=== PATIENT | female | born 1965 | race Caucasian/White ===

== ENCOUNTER → 2017-04-23 | Outpatient (CLI) | payer MEDICARE, OTHER ==
[2017-04-23 11:37] LABS: ALT 24 U/L (9-52); AST 23 U/L (14-36); Alkaline Phosphatase 100 U/L (38-126); Anion Gap 12 mmol/L; Blood Urea Nitrogen 9 mg/dL (7-17); Calcium 9.8 mg/dL (8.4-10.2); Carbon Dioxide 24 mmol/L (22-30); Chloride 101 mmol/L (98-107); Cholesterol 241 mg/dL (<200); Glucose 82 mg/dL (74-99); HDL Cholesterol 77 mg/dL (40-60); Non-African American GFR(MDRD) >60 (>60 ml/min/1.73 sqM); Potassium 3.9 mmol/L (3.5-5.1); Sodium 137 mmol/L (137-145); Total Bilirubin 0.7 mg/dL (0.2-1.3); Triglycerides 144 mg/dL (<150)
--- NOTE | 2017-04-23 11:37 | XR ---
EXAMINATION TYPE: XR chest 2V DATE OF EXAM: 04/23/2017 HISTORY: J44.9 COPD. REFERENCE: Previous study dated 12/26/2014. FINDINGS: There is scarring in the right upper lobe. Lungs are otherwise clear. Pleural spaces are cl ear. The heart is not enlarged. IMPRESSION: NO ACTIVE INTRATHORACIC DISEASE.
[2017-04-23 11:58] LABS: Appearance,Urine Cloudy (Clear); Bilirubin,Urine Negative (Negative); Glucose,Urine (UA) Negative (Negative); Ketones,Urine Negative (Negative); Leukocyte Esterase,Urine Moderate (Negative); Mucus,Urine Rare /hpf; Nitrite,Urine Negative (Negative); Particle Count 10673; Protein,Urine Negative (Negative); Specific Gravity,Urine 1.014 (1.001-1.035); Squamous Epithelial Cell,Urine 10 /hpf (0-4); UA Billing (MACRO vs. MICRO) MICRO; WBC,Urine 4 /hpf (0-5)
[2017-04-23 12:01] LABS: CH 33.3; CHCM 33.4; HCT 39.3 % (34.0-46.0); HDW 2.12; MCH 33.3 pg (25.0-35.0); MCHC 33.2 g/dL (31.0-37.0); MCV 100.2 fL (80.0-100.0); Mean Platelet Volume 7.8; RBC 3.92 m/uL (3.80-5.40); RDW 13.2 % (11.5-15.5); WBC 6.6 k/uL (3.8-10.6)
== END | disposition home or self-care (01) ==
LOC: LABWHC1 10:38
PROVIDERS: ATTEND Internal Medicine
DX: I11.9 Hypertensive heart disease without heart failure (principal); G40.909 Epilepsy, unspecified, not intractable, without status epilepticus; J44.9 Chronic obstructive pulmonary disease, unspecified; R53.1 Weakness; K21.0 Gastro-esophageal reflux disease with esophagitis; R35.0 Frequency of micturition
CPT/HCPCS: 36415; 71020; 80053; 80061; 81001; 84439; 84443; 85027

== ENCOUNTER 2019-01-17 14:02 | Emergency (ER) | payer MEDICARE, OTHER ==
[2019-01-17] MEDS ORDERED: ACETAMINOPHEN IV (For NPO) 1,000 MG in EMPTY BAG 1 BAG IVPB STA (14:09)
[2019-01-17] MEDS ORDERED: LORazepam 2 MG/ML INJ IV STA (14:12)
--- NOTE | 2019-01-17 14:19 | ED ---
General Adult HPI - General Stated complaint: unresponsive Time Seen by Provider: 01/17/19 14:11 Source: EMS Mode of arrival: EMS Limitations: altered mental status, physical limitation - History of Present Illness Initial comments: Patient is a 53-year-old female presenting to the emergency department for decreased responsiveness. Onset is unknown. Patient was found unresponsive by significant other with concern for seizure. Patient was given her dose of Depakote as well as another medication. At this time patient arouses only to sternal rub per EMS. Patient is with decreased responsiveness at this time and nonverbal. Patient is unable to provide any significant history. - Related Data Home Medications Medication Instructions Recorded Confirmed carBAMazepine [carBAMazepine XR] 400 mg PO BID 12/27/14 01/17/19 Ranitidine HCl 150 mg PO BID 12/29/14 01/17/19 ALPRAZolam [Xanax] 2 mg PO DAILY PRN 01/17/19 01/17/19 Albuterol Inhaler [Ventolin Hfa 1 - 2 puff INHALATION RT-Q6H PRN 01/17/19 Inhaler] Albuterol Nebulized [Ventolin 2.5 mg INHALATION RT-QID PRN 01/17/19 01/17/19 Nebulized] Atorvastatin [Lipitor] 20 mg PO DAILY 01/17/19 01/17/19 Cetirizine HCl [Zyrtec] 10 mg PO DAILY 01/17/19 01/17/19 Dexamethasone [Hexadrol] 4 mg PO DAILY 01/17/19 01/17/19 Divalproex Sodium [Depakote] 125 mg PO BID 01/17/19 01/17/19 Divalproex [Depakote] 500 mg PO DAILY 01/17/19 01/17/19 Fluticasone Propionate [Flonase 2 spray EA NOSTRIL BID 01/17/19 01/17/19 Allergy Relief] Gabapentin [Neurontin] 300 mg PO DAILY 01/17/19 01/17/19 Hydrochlorothiazide [Hydrodiuril] 12.5 mg PO DAILY 01/17/19 01/17/19 Loratadine [Claritin] 10 mg PO DAILY 01/17/19 01/17/19 Meloxicam [Mobic] 7.5 mg PO DAILY 01/17/19 01/17/19 Mupirocin 2% Oint [Bactroban 2% 1 applic TOPICAL TID 01/17/19 01/17/19 Oint] Nicotine Polacrilex [Nicorette] 4 mg BUCCAL Q1H MDD 16 01/17/19 01/17/19 Sertraline HCl [Zoloft] 100 mg PO BID 01/17/19 01/17/19 rOPINIRole HCL [Requip] 1 mg PO HS 01/17/19 01/17/19 risperiDONE 3 mg PO DAILY 01/17/19 01/17/19 traZODone HCL [Desyrel] 100 mg PO BID 01/17/19 01/17/19 Allergies Allergy/AdvReac Type Severity Reaction Status Date / Time cyclobenzaprine HCl Allergy Unknown Verified 01/17/19 14:12 [From Flexeril] oxaprozin [From Daypro] Allergy Unknown Verified 01/17/19 14:12 Review of Systems ROS Statement: Those systems with pertinent positive or pertinent negative responses have been documented in the HPI. ROS Other: All systems not noted in ROS Statement are negative. Limitations: ROS unobtainable due to patients medical condition Past Medical History Past Medical History: Asthma, Osteoarthritis (OA), Seizure Disorder Additional Past Medical History / Comment(s): cognitive impairment History of Any Multi-Drug Resistant Organisms: None Reported, Unobtainable Past Surgical History: Orthopedic Surgery Additional Past Surgical History / Comment(s): L KNEE SURG Past Anesthesia/Blood Transfusion Reactions: No Reported Reaction Past Psychological History: Depression Smoking Status: Current every day smoker Past Alcohol Use History: None Reported Past Drug Use History: None Reported - Past Family History Father Family Medical History: Diabetes Mellitus, Seizure Disorder General Exam Limitations: altered mental status, physical limitation General appearance: other (Decreased responsiveness. Does not follow commands. Eyes are deviated to the left with some fasciculation type movement.) Eye exam: Present: PERRL ENT exam: Present: normal oropharynx Neck exam: Present: normal inspection, full ROM. Absent: tenderness, meningismus Respiratory exam: Present: normal lung sounds bilaterally Cardiovascular Exam: Present: tachycardia GI/Abdominal exam: Present: soft. Absent: tenderness Extremities exam: Present: other (Left foot with medial MCP ulcer and erythema) Neurological exam: Present: other (Decreased responsiveness. Does not follow commands. Gag reflex is present. Nonverbal.) Psychiatric exam: Present: other (Nonverbal) Skin exam: Present: other (Left medial MCP foot ulceration and erythema) Course Vital Signs 01/17/19 01/17/19 01/17/19 14:12 15:06 15:21 Temperature 101.3 F H Pulse Rate 124 H 113 H 112 H Respiratory 18 20 18 Rate Blood Pressure 106/62 79/45 83/33 O2 Sat by Pulse 96 Oximetry 01/17/19 01/17/19 01/17/19 15:34 15:51 16:12 Temperature 100.2 F H Pulse Rate 110 H 92 Respiratory 18 18 Rate Blood Pressure 86/41 82/44 O2 Sat by Pulse Oximetry 01/17/19 01/17/19 01/17/19 16:21 16:23 16:45 Temperature 99.8 F H Pulse Rate 107 H 99 Respiratory 18 18 Rate Blood Pressure 97/45 102/57 O2 Sat by Pulse 100 Oximetry 01/17/19 17:20 Temperature Pulse Rate 111 H Respiratory 20 Rate Blood Pressure 85/46 O2 Sat by Pulse 99 Oximetry - Reevaluation(s) Reevaluation #1: 01/17/19 17:35 Source of fever is unknown at this time, 173. There is concern for sepsis. Culture and lactic acid and IV antibiotics and fluid boluses have all been ordered. 01/17/19 17:44 Case was discussed with Dr. Colin. Case was also discussed with Dr. Weller, who would like to come evaluate patient. 01/17/19 18:34 Dr. Colin requested transfer. Case was discussed with Dr. Ireland at [facility] who will accept. EKG Findings - EKG Comments: EKG Findings:: Sinus tachycardia 135. WA 138. QRS 74. QT 296. QTc 444. Normal axis. Right atrial enlargement. Normal QRS. Nonspecific ST-T. Procedures - Central Line Placement Right SC Consent Obtained: emergent situation Patient Placed on Monitor/Pulse Ox: Yes MD Prep: mask, gown, gloves Central Line Prep: Chlorhexidine scrub Local Anesthesia Used: Lidocaine 1% Amount of Anesthesia Used (mls): 2 Central Line Lumen Inserted: triple Central Line Position: good blood return, all ports aspirated, flushed, capped, sutured in place with 3-0 nylon Dressing Applied: Tegaderm Patient Tolerated Procedure: well Complications: none - Lumbar Puncture Consent Obtained: verbal consent, emergent situation Indication for Procedure: fever work up Patient Position: sitting upright/leaning forward Skin Prep: Povidone-Iodine 1% Local Anesthetic Used: Lidocaine 1% Interspace Used: L4-L5 Fluid Initially Obtained: clear Complications: none Patient Tolerated Procedure: well, no complications - Sepsis Sepsis Focused Exam #1 Time Sepsis Criteria Met: 17:35 Sepsis Focused Exam Date: 01/17/19 Sepsis Focused Exam Time: 17:44 Sepsis Focused Exam Complete: Yes Vital Signs & RN Notes Reviewed: Yes Capillary Refill: < 2 Seconds: Fingers, Toes Peripheral Pulses: Normal: Radial (R), Radial (L) Skin Color: Normal for Patient Respiratory Exam: normal lung sounds Cardiovascular Exam: tachycardia Medical Decision Making - Lab Data Result diagrams: 01/17/19 14:16 01/17/19 14:16 Lab Results 01/17/19 01/17/19 01/17/19 Range/Units 14:16 14:16 14:16 WBC 3.5 L (3.8-10.6) k/uL RBC 4.00 (3.80-5.40) m/uL Hgb 13.4 (11.4-16.0) gm/dL Hct 38.7 (34.0-46.0) % MCV 96.7 (80.0-100.0) fL MCH 33.5 (25.0-35.0) pg MCHC 34.7 (31.0-37.0) g/dL RDW 12.7 (11.5-15.5) % Plt Count 123 L (150-450) k/uL Neutrophils % (Manual) 43 % Band Neutrophils % 37 % Lymphocytes % (Manual) 4 % Monocytes % (Manual) 4 % Metamyelocytes % 6 % Myelocytes % 7 % Neutrophils # (Manual) 2.80 (1.3-7.7) k/uL Lymphocytes # (Manual) 0.14 L (1.0-4.8) k/uL Monocytes # (Manual) 0.14 (0-1.0) k/uL Metamyelocytes # (Man) 0.21 H (0) k/uL Myelocytes # (Manual) 0.25 H (0) k/uL Nucleated RBCs 0 (0-0) /100 WBC Manual Slide Review Performed Toxic Granulation Present Toxic Vacuolation Present Large Platelets Present Polychromasia Present PT (9.0-12.0) sec INR (<1.2) APTT (22.0-30.0) sec Sodium 135 L (137-145) mmol/L Potassium 3.1 L (3.5-5.1) mmol/L Chloride 102 (98-107) mmol/L Carbon Dioxide 22 (22-30) mmol/L Anion Gap 11 mmol/L BUN 16 (7-17) mg/dL Creatinine 1.28 H (0.52-1.04) mg/dL Est GFR (CKD-EPI)AfAm 55 (>60 ml/min/1.73 sqM) Est GFR (CKD-EPI)NonAf 48 (>60 ml/min/1.73 sqM) Glucose 111 H (74-99) mg/dL POC Glucose (mg/dL) (75-99) mg/dL POC Glu Beam House Inspector ID Plasma Lactic Acid Huan 1.9 (0.7-2.0) mmol/L Calcium 8.9 (8.4-10.2) mg/dL Total Bilirubin 1.1 (0.2-1.3) mg/dL AST 28 (14-36) U/L ALT 26 (9-52) U/L Alkaline Phosphatase 103 (38-126) U/L Total Protein 5.9 L (6.3-8.2) g/dL Albumin 3.5 (3.5-5.0) g/dL Urine Color Urine Appearance (Clear) Urine pH (5.0-8.0) Ur Specific [place] (1.001-1.035) Urine Protein (Negative) Urine Glucose (UA) (Negative) Urine Ketones (Negative) Urine Blood (Negative) Urine Nitrite (Negative) Urine Bilirubin (Negative) Urine Urobilinogen (<2.0) mg/dL Ur Leukocyte Esterase (Negative) CSF Tube Number CSF Volume CSF Appearance CSF Color CSF Glucose (40-70) mg/dL CSF Total Protein (12-60) mg/dL Urine Opiates Screen (NotDetected) Ur Oxycodone Screen (NotDetected) Urine Methadone Screen (NotDetected) Ur Propoxyphene Screen (NotDetected) Ur Barbiturates Screen (NotDetected) Valproic Acid 66.3 ug/mL Carbamazepine 9.1 ug/mL U Tricyclic Antidepress (NotDetected) Ur Phencyclidine Scrn (NotDetected) Ur Amphetamines Screen (NotDetected) U Methamphetamines Scrn (NotDetected) U Benzodiazepines Scrn (NotDetected) Urine Cocaine Screen (NotDetected) U Marijuana (THC) Screen (NotDetected) Serum Alcohol <10 mg/dL Influenza Type A RNA (Not Detectd) Influenza Type B (PCR) (Not Detectd) 01/17/19 01/17/19 01/17/19 Range/Units 14:16 14:17 14:32 WBC (3.8-10.6) k/uL RBC (3.80-5.40) m/uL Hgb (11.4-16.0) gm/dL Hct (34.0-46.0) % MCV (80.0-100.0) fL MCH (25.0-35.0) pg MCHC (31.0-37.0) g/dL RDW (11.5-15.5) % Plt Count (150-450) k/uL Neutrophils % (Manual) % Band Neutrophils % % Lymphocytes % (Manual) % Monocytes % (Manual) % Metamyelocytes % % Myelocytes % % Neutrophils # (Manual) (1.3-7.7) k/uL Lymphocytes # (Manual) (1.0-4.8) k/uL Monocytes # (Manual) (0-1.0) k/uL Metamyelocytes # (Man) (0) k/uL Myelocytes # (Manual) (0) k/uL Nucleated RBCs (0-0) /100 WBC Manual Slide Review Toxic Granulation Toxic Vacuolation Large Platelets Polychromasia PT 10.2 (9.0-12.0) sec INR 0.9 (<1.2) APTT 28.1 (22.0-30.0) sec Sodium (137-145) mmol/L Potassium (3.5-5.1) mmol/L Chloride (98-107) mmol/L Carbon Dioxide (22-30) mmol/L Anion Gap mmol/L BUN (7-17) mg/dL Creatinine (0.52-1.04) mg/dL Est GFR (CKD-EPI)AfAm (>60 ml/min/1.73 sqM) Est GFR (CKD-EPI)NonAf (>60 ml/min/1.73 sqM) Glucose (74-99) mg/dL POC Glucose (mg/dL) 107 H (75-99) mg/dL POC Glu Beam House Inspector ID Lb Marquez Plasma Lactic Acid Huan (0.7-2.0) mmol/L Calcium (8.4-10.2) mg/dL Total Bilirubin (0.2-1.3) mg/dL AST (14-36) U/L ALT (9-52) U/L Alkaline Phosphatase (38-126) U/L Total Protein (6.3-8.2) g/dL Albumin (3.5-5.0) g/dL Urine Color Yellow Urine Appearance Clear (Clear) Urine pH 5.5 (5.0-8.0) Ur Specific [place] 1.012 (1.001-1.035) Urine Protein Negative (Negative) Urine Glucose (UA) Negative (Negative) Urine Ketones Negative (Negative) Urine Blood Negative (Negative) Urine Nitrite Negative (Negative) Urine Bilirubin 2+ H (Negative) Urine Urobilinogen <2.0 (<2.0) mg/dL Ur Leukocyte Esterase Negative (Negative) CSF Tube Number CSF Volume CSF Appearance CSF Color CSF Glucose (40-70) mg/dL CSF Total Protein (12-60) mg/dL Urine Opiates Screen (NotDetected) Ur Oxycodone Screen (NotDetected) Urine Methadone Screen (NotDetected) Ur Propoxyphene Screen (NotDetected) Ur Barbiturates Screen (NotDetected) Valproic Acid ug/mL Carbamazepine ug/mL U Tricyclic Antidepress (NotDetected) Ur Phencyclidine Scrn (NotDetected) Ur Amphetamines Screen (NotDetected) U Methamphetamines Scrn (NotDetected) U Benzodiazepines Scrn (NotDetected) Urine Cocaine Screen (NotDetected) U Marijuana (THC) Screen (NotDetected) Serum Alcohol mg/dL Influenza Type A RNA (Not Detectd) Influenza Type B (PCR) (Not Detectd) 01/17/19 01/17/19 01/17/19 Range/Units 14:33 15:15 17:18 WBC (3.8-10.6) k/uL RBC (3.80-5.40) m/uL Hgb (11.4-16.0) gm/dL Hct (34.0-46.0) % MCV (80.0-100.0) fL MCH (25.0-35.0) pg MCHC (31.0-37.0) g/dL RDW (11.5-15.5) % Plt Count (150-450) k/uL Neutrophils % (Manual) % Band Neutrophils % % Lymphocytes % (Manual) % Monocytes % (Manual) % Metamyelocytes % % Myelocytes % % Neutrophils # (Manual) (1.3-7.7) k/uL Lymphocytes # (Manual) (1.0-4.8) k/uL Monocytes # (Manual) (0-1.0) k/uL Metamyelocytes # (Man) (0) k/uL Myelocytes # (Manual) (0) k/uL Nucleated RBCs (0-0) /100 WBC Manual Slide Review Toxic Granulation Toxic Vacuolation Large Platelets Polychromasia PT (9.0-12.0) sec INR (<1.2) APTT (22.0-30.0) sec Sodium (137-145) mmol/L Potassium (3.5-5.1) mmol/L Chloride (98-107) mmol/L Carbon Dioxide (22-30) mmol/L Anion Gap mmol/L BUN (7-17) mg/dL Creatinine (0.52-1.04) mg/dL Est GFR (CKD-EPI)AfAm (>60 ml/min/1.73 sqM) Est GFR (CKD-EPI)NonAf (>60 ml/min/1.73 sqM) Glucose (74-99) mg/dL POC Glucose (mg/dL) (75-99) mg/dL POC Glu Beam House Inspector ID Plasma Lactic Acid Huan (0.7-2.0) mmol/L Calcium (8.4-10.2) mg/dL Total Bilirubin (0.2-1.3) mg/dL AST (14-36) U/L ALT (9-52) U/L Alkaline Phosphatase (38-126) U/L Total Protein (6.3-8.2) g/dL Albumin (3.5-5.0) g/dL Urine Color Urine Appearance (Clear) Urine pH (5.0-8.0) Ur Specific [place] (1.001-1.035) Urine Protein (Negative) Urine Glucose (UA) (Negative) Urine Ketones (Negative) Urine Blood (Negative) Urine Nitrite (Negative) Urine Bilirubin (Negative) Urine Urobilinogen (<2.0) mg/dL Ur Leukocyte Esterase (Negative) CSF Tube Number 4 CSF Volume 1.0 CSF Appearance Clear CSF Color Colorless CSF Glucose 65 (40-70) mg/dL CSF Total Protein 52 (12-60) mg/dL Urine Opiates Screen Not Detected (NotDetected) Ur Oxycodone Screen Not Detected (NotDetected) Urine Methadone Screen Not Detected (NotDetected) Ur Propoxyphene Screen Not Detected (NotDetected) Ur Barbiturates Screen Not Detected (NotDetected) Valproic Acid ug/mL Carbamazepine ug/mL U Tricyclic Antidepress Not Detected (NotDetected) Ur Phencyclidine Scrn Not Detected (NotDetected) Ur Amphetamines Screen Not Detected (NotDetected) U Methamphetamines Scrn Not Detected (NotDetected) U Benzodiazepines Scrn Not Detected (NotDetected) Urine Cocaine Screen Not Detected (NotDetected) U Marijuana (THC) Screen Not Detected (NotDetected) Serum Alcohol mg/dL Influenza Type A RNA Not Detected (Not Detectd) Influenza Type B (PCR) Not Detected (Not Detectd) Critical Care Time Critical Care Time: Yes Total Critical Care Time: 40 Disposition Clinical Impression: Septic shock, Seizure Disposition: OTHER INSTITUTION NOT DEFINED Condition: Critical Is patient prescribed a controlled substance at d/c from ED?: No Referrals: Pavel Colin MD [Primary Care Provider] - 1-2 days Time of Disposition: 18:13 - Out of Hospital Transfer - Req. Specs Out of Hospital Transfer - Requested Specifics: Other Emergency Center
[2019-01-17] MEDS: SODIUM CHLORIDE 0.9% 500 ML 500 ML IV SCH (14:23)
[2019-01-17 14:29] LABS: Glucose,Whole Blood 107 mg/dL (75-99)
[2019-01-17 14:48] LABS: HCT 38.7 % (34.0-46.0); HGB 13.4 gm/dL (11.4-16.0); MCH 33.5 pg (25.0-35.0); MCHC 34.7 g/dL (31.0-37.0); MCV 96.7 fL (80.0-100.0); Mean Platelet Volume 7.8; Platelet Count 123 k/uL (150-450); RDW 12.7 % (11.5-15.5); WBC 3.5 k/uL (3.8-10.6)
[2019-01-17 14:52] LABS: Appearance,Urine Clear (Clear); Bilirubin,Urine 2+ (Negative); Blood,Urine Negative (Negative); Color,Urine Yellow; Glucose,Urine (UA) Negative (Negative); Ketones,Urine Negative (Negative); Leukocyte Esterase,Urine Negative (Negative); Nitrite,Urine Negative (Negative); PH, Urine 5.5 (5.0-8.0); Protein,Urine Negative (Negative); Specific Gravity,Urine 1.012 (1.001-1.035); Urobilinogen,Urine <2.0 mg/dL (<2.0)
[2019-01-17 14:58] LABS: INR 0.9 (<1.2); Partial Thromboplastin Time 28.1 sec (22.0-30.0); Prothrombin Time 10.2 sec (9.0-12.0)
[2019-01-17 15:00] LABS: ALT 26 U/L (9-52); AST 28 U/L (14-36); Albumin 3.5 g/dL (3.5-5.0); Alcohol <10 mg/dL; Alkaline Phosphatase 103 U/L (38-126); Anion Gap 11 mmol/L; Blood Urea Nitrogen 16 mg/dL (7-17); Calcium 8.9 mg/dL (8.4-10.2); Carbamazepine (Tegretol) 9.1 ug/mL; Carbon Dioxide 22 mmol/L (22-30); Chloride 102 mmol/L (98-107); Glucose 111 mg/dL (74-99); Potassium 3.1 mmol/L (3.5-5.1); Sodium 135 mmol/L (137-145); Total Bilirubin 1.1 mg/dL (0.2-1.3); Total Protein 5.9 g/dL (6.3-8.2)
--- NOTE | 2019-01-17 15:02 | CT ---
EXAMINATION TYPE: CT brain wo con DATE OF EXAM: 01/17/2019 HISTORY: altered mental status, unresponsive CT DLP: 1097.4 mGycm. Automated Exposure Control for Dose Reduction was Utilized. TECHNIQUE: CT scan of the head is performed without contrast. COMPARISON: CT scan of brain December 26, 2014. FINDINGS: There is no acute intracranial hemorrhage or midline shift identified. There is diffuse v entricular and sulcal prominence consistent with diffuse age-related cerebral atrophy. There is low- attenuation in the periventricular white matter consistent with chronic small vessel ischemic change. Air-fluid level left sphenoid sinus is present. Remainder paranasal sinuses are clear. Globes are in tact bilaterally. Stable patchy opacification posterior inferior left mastoid with sclerosis suggesti ng chronic mastoiditis. IMPRESSION: No acute intracranial hemorrhage or midline shift. There is mild to minimal diffuse age -related cerebral atrophy and chronic small vessel ischemic change redemonstrated. Persistent left sp henoid sinus disease noted.
[2019-01-17 15:03] LABS: Valproic Acid (Depakene) 66.3 ug/mL
--- NOTE | 2019-01-17 15:03 | XR ---
EXAMINATION TYPE: XR foot complete LT DATE OF EXAM: 01/17/2019 CLINICAL HISTORY: Pain. TECHNIQUE: Frontal, lateral, and oblique images of the left foot are obtained. COMPARISON: Left foot x-ray September 17, 2017 FINDINGS: There is no acute fracture/dislocation evident in the left foot. Flexion and joint space n arrowing distal fourth and fifth toes remains present. Mild to moderate narrowing first metatarsophal angeal joint with lateral mild spurring is redemonstrated. Mild to moderate narrowing and spurring ba se of first metatarsal is again seen best on oblique image. Small to tiny superior and inferior calca kareen spurs are redemonstrated. Mild plantar subcutaneous edema is again seen. IMPRESSION: There is no acute fracture or dislocation in the left foot. Other findings as noted abov e without significant interval change.
[2019-01-17 15:04] LABS: Amphetamine Screen,Urine Not Detected (NotDetected); Barbiturate Screen,Urine Not Detected (NotDetected); Benzodiazepines Screen,Urine Not Detected (NotDetected); Cocaine Screen,Urine Not Detected (NotDetected); Methadone Screen, Urine Not Detected (NotDetected); Opiate Screen,Urine Not Detected (NotDetected); Oxycodone Screen, Urine Not Detected (NotDetected); Phencyclidine Screen,Urine Not Detected (NotDetected); Tricyclic Antidepressant,Urine Not Detected (NotDetected); Urn Cannabinoid Scrn Not Detected (NotDetected)
--- NOTE | 2019-01-17 15:04 | XR ---
EXAMINATION TYPE: XR chest 1V portable DATE OF EXAM: 01/17/2019 COMPARISON: Chest x-ray April 23, 2017. HISTORY: Unresponsive and weakness. TECHNIQUE: Single frontal view of the chest is obtained. FINDINGS: There is no new suspicious focal air space opacity, pleural effusion, or pneumothorax seen . Right upper lung linear scarring is redemonstrated. The cardiac silhouette size is upper limits of normal on current study. Overlying EKG leads are seen. The osseous structures are intact. IMPRESSION: No acute pulmonary process. Right upper lung linear scarring redemonstrated.
[2019-01-17] MEDS ORDERED: SODIUM CHLORIDE 0.9% 1,000 ML IV STA (15:11)
[2019-01-17] MEDS ORDERED: SODIUM CHLORIDE 0.9% 700 ML IV STA (15:11)
[2019-01-17 17:31] LABS: Band Neutrophils % 37 %; Lymphocytes # (M) 0.14 k/uL (1.0-4.8); Metamyelocytes # (M) 0.21 k/uL (0); Metamyelocytes % 6 %; Monocytes # (M) 0.14 k/uL (0-1.0); Myelocytes # (M) 0.25 k/uL (0); Myelocytes % 7 %; Neutrophils % (M) 43 %; Nucleated Red Blood Cells 0 /100 WBC (0-0); Polychromasia Present; Total Cells Counted 200; Toxic Vacuolation Present
[2019-01-17 17:32] LABS: Large Platelets Present; Toxic Granulation Present
[2019-01-17] MEDS ORDERED: NOREPINEPHRINE 32 MG in SODIUM CHLORIDE 0.9% 218 ML IV SCH (17:45)
[2019-01-17 17:57] LABS: Glucose,CSF 65 mg/dL (40-70); Total Protein,CSF 52 mg/dL (12-60)
--- NOTE | 2019-01-17 18:01 | XR ---
EXAMINATION TYPE: XR chest 1V portable DATE OF EXAM: 01/17/2019 COMPARISON: Today HISTORY: Line placement TECHNIQUE: Single frontal view of the chest is obtained. FINDINGS: There is a right subclavian catheter with the tip in the superior vena cava. No pneumothor ax. There is some mild linear infiltrate in the right upper lobe. There is no heart failure. Heart si ze is normal. There are chest leads. IMPRESSION: Right upper lobe chronic infiltrate consistent with scarring and atelectasis. This is al so similar to older chest x-ray of 04/23/2017.. No pneumothorax. No heart failure.
[2019-01-17 18:28] LABS: Appearance,CSF Clear; CSF Tube Number 4
[2019-01-17] MEDS ORDERED: VANCOMYCIN 1,500 MG in SODIUM CHLORIDE 0.9% 250 ML IVPB STA (18:36)
[2019-01-17 18:39] LABS: Nucleated Cells, CSF 0 u/L (0-5); Red Blood Cell,CSF 0 u/L (0-10)
[2019-01-17 18:43] VITALS: RESP 18
[2019-01-17 19:06] VITALS: TEMP 99
[2019-01-17 19:20] VITALS: BP 86/55; PULSE 101
[2019-01-18 09:53] LABS: VDRL, Qualitative CSF Nonreactive (Nonreactive)
== END 2019-01-17 19:21 | disposition other institution (70) ==
LOC: EC 14:02
DX: A41.9 Sepsis, unspecified organism (principal); R65.21 Severe sepsis with septic shock; G40.909 Epilepsy, unspecified, not intractable, without status epilepticus; L97.529 Non-pressure chronic ulcer of other part of left foot with unspecified severity; J45.909 Unspecified asthma, uncomplicated; M19.90 Unspecified osteoarthritis, unspecified site; F32.9 Major depressive disorder, single episode, unspecified; F17.200 Nicotine dependence, unspecified, uncomplicated; Z79.52 Long term (current) use of systemic steroids; Z79.1 Long term (current) use of non-steroidal anti-inflammatories (NSAID); Z79.899 Other long term (current) drug therapy; Z88.8 Allergy status to other drugs, medicaments and biological substances
CPT/HCPCS: 36415; 93005; 86592; 80156; 80164; 84157; 80053; 82945; 83605; 85025; 85610; 85730; 89050; 81003; 87040; 80306; 87070; 87086; 87205; 87502; 73630; 71045; 70450; 99291; 36556; 62270; 96365; 96367; 96374; 96361 ×2; G0480; J3370; J2060; J0696; J0131; 80320

== ENCOUNTER 2019-06-02 17:19 | Inpatient (IN) | payer MEDICARE, OTHER ==
[2019-06-02] MEDS ORDERED: SODIUM CHLORIDE 0.9% 500 ML 500 ML IV STA (18:13)
--- NOTE | 2019-06-02 18:16 | ED ---
Seizure HPI <Dale Funes - Last Filed: 06/02/19 19:49> - General Source: patient, EMS Mode of arrival: EMS Limitations: no limitations <Chantale Rivas - Last Filed: 06/02/19 20:14> - General Chief Complaint: Seizure Stated Complaint: Seizure Time Seen by Provider: 06/02/19 18:07 - History of Present Illness Initial Comments: 53-year-old female patient presents to the emergency department today for evaluation after experiencing 2 seizures at home. Patient does have history of seizures and cognitive delay. Patient provides all of history is no family members are present. Patient states that she had 2 seizures today. She is unsure how long it lasted. Patient is unsure when her last seizure was before today. Patient states she currently feels tired but has no other symptoms. States that she does take Depakote for seizures and has been taking as directed. She denies any recent illness, fever, or chills. She denies any current headache, blurred vision, double vision, nausea, chest pain, shortness of breath, abdominal pain, recent constipation or diarrhea. Denies any urinary symptoms. Patient denies any recent rash, shortness breath, chest pain, back pain, numbness, tingling, dizziness, weakness, hematuria, dysuria, urinary urgency, urinary frequency, or any other complaints. (Chantale Rivas) - Related Data Home Medications Medication Instructions Recorded Confirmed carBAMazepine [carBAMazepine XR] 400 mg PO BID 12/27/14 01/17/19 Ranitidine HCl 150 mg PO BID 12/29/14 01/17/19 ALPRAZolam [Xanax] 2 mg PO DAILY PRN 01/17/19 01/17/19 Albuterol Inhaler [Ventolin Hfa 1 - 2 puff INHALATION RT-Q6H PRN 01/17/19 01/17/19 Inhaler] Albuterol Nebulized [Ventolin 2.5 mg INHALATION RT-QID PRN 01/17/19 01/17/19 Nebulized] Atorvastatin [Lipitor] 20 mg PO DAILY 01/17/19 01/17/19 Cetirizine HCl [Zyrtec] 10 mg PO DAILY 01/17/19 01/17/19 Dexamethasone [Hexadrol] 4 mg PO DAILY 01/17/19 01/17/19 Divalproex Sodium [Depakote] 125 mg PO BID 01/17/19 01/17/19 Divalproex [Depakote] 500 mg PO DAILY 01/17/19 01/17/19 Fluticasone Propionate [Flonase 2 spray EA NOSTRIL BID 01/17/19 01/17/19 Allergy Relief] Gabapentin [Neurontin] 300 mg PO DAILY 01/17/19 01/17/19 Hydrochlorothiazide [Hydrodiuril] 12.5 mg PO DAILY 01/17/19 01/17/19 Loratadine [Claritin] 10 mg PO DAILY 01/17/19 01/17/19 Meloxicam [Mobic] 7.5 mg PO DAILY 01/17/19 01/17/19 Mupirocin 2% Oint [Bactroban 2% 1 applic TOPICAL TID 01/17/19 01/17/19 Oint] Nicotine Polacrilex [Nicorette] 4 mg BUCCAL Q1H MDD 16 01/17/19 01/17/19 Sertraline HCl [Zoloft] 100 mg PO BID 01/17/19 01/17/19 rOPINIRole HCL [Requip] 1 mg PO HS 01/17/19 01/17/19 risperiDONE 3 mg PO DAILY 01/17/19 01/17/19 traZODone HCL [Desyrel] 100 mg PO BID 01/17/19 01/17/19 Allergies Allergy/AdvReac Type Severity Reaction Status Date / Time cyclobenzaprine HCl Allergy Unknown Verified 06/02/19 18:18 [From Flexeril] oxaprozin [From Daypro] Allergy Unknown Verified 06/02/19 18:18 Review of Systems ROS Other: All systems not noted in ROS Statement are negative. <Dale Funes - Last Filed: 06/02/19 19:49> ROS Other: All systems not noted in ROS Statement are negative. <Chantale Rivas - Last Filed: 06/02/19 20:14> ROS Statement: Those systems with pertinent positive or pertinent negative responses have been documented in the HPI. Past Medical History Past Medical History: Asthma, Osteoarthritis (OA), Seizure Disorder Additional Past Medical History / Comment(s): cognitive impairment History of Any Multi-Drug Resistant Organisms: None Reported, Unobtainable Past Surgical History: Orthopedic Surgery Additional Past Surgical History / Comment(s): L KNEE SURG Past Anesthesia/Blood Transfusion Reactions: No Reported Reaction Past Psychological History: Depression Smoking Status: Current every day smoker Past Alcohol Use History: None Reported Past Drug Use History: None Reported - Past Family History Father Family Medical History: Diabetes Mellitus, Seizure Disorder <Chantale Rivas - Last Filed: 06/02/19 20:14> General Exam Limitations: no limitations General appearance: alert, in no apparent distress, other (Physical well- developed, well-nourished adult female patient in no acute distress. Vital signs upon presentation are temperature 98.7 degrees; pulse 91 respiration 16, blood pressure 152/90, pulse ox 97% on room air.) Eye exam: Present: normal appearance, PERRL, EOMI. Absent: scleral icterus, conjunctival injection, periorbital swelling ENT exam: Present: normal exam, normal oropharynx, mucous membranes moist Respiratory exam: Present: normal lung sounds bilaterally. Absent: respiratory distress, wheezes, rales, rhonchi, stridor Cardiovascular Exam: Present: regular rate, normal rhythm, normal heart sounds. Absent: systolic murmur, diastolic murmur, rubs, gallop, clicks GI/Abdominal exam: Present: soft, normal bowel sounds. Absent: distended, tenderness, guarding, rebound, rigid Neurological exam: Present: alert, oriented X3, CN II-XII intact Psychiatric exam: Present: normal affect, normal mood Skin exam: Present: warm, dry, intact, normal color. Absent: rash <Chantale Rivas M - Last Filed: 06/02/19 20:14> Course Vital Signs 06/02/19 17:27 Temperature 98.7 F Pulse Rate 91 Respiratory 16 Rate Blood Pressure 152/90 O2 Sat by Pulse 97 Oximetry Medical Decision Making - Lab Data Result diagrams: 06/02/19 17:42 06/02/19 17:42 <Dale Funes - Last Filed: 06/02/19 19:49> - Lab Data Result diagrams: 06/02/19 17:42 06/02/19 17:42 - EKG Data -: EKG Interpreted by Sd <Chantale Rivas - Last Filed: 06/02/19 20:14> - Medical Decision Making Case was discussed with practitioner Chantale. Chart reviewed. Secondary to 2 seizures of possibly up to 15 minute duration patient will be held for observation and neurology evaluation. Case was discussed in detail with Dr. Guallpa, covering for Dr. Colin, who agrees and will admit. (Dale Funes) 53-year-old female patient presented to the emergency department today for evaluation after having 2 seizures today lasting possibly up to 15-20 minutes. Family members provided this information to emergency medical services but did not present during patient's evaluation. Patient is resting comfortably in bed. Physical examination is unremarkable. She is neurologically intact with no focal deficits. Labs reviewed and are unremarkable. Depakote is therapeutic. She'll be admitted for observation and evaluation by neurology. (Chantale Rivas) - Lab Data Lab Results 06/02/19 06/02/19 06/02/19 Range/Units 17:42 17:42 19:10 WBC 6.1 (3.8-10.6) k/uL RBC 3.92 (3.80-5.40) m/uL Hgb 12.4 (11.4-16.0) gm/dL Hct 36.5 (34.0-46.0) % MCV 93.2 (80.0-100.0) fL MCH 31.8 (25.0-35.0) pg MCHC 34.1 (31.0-37.0) g/dL RDW 13.8 (11.5-15.5) % Plt Count 178 (150-450) k/uL Neutrophils % 68 % Lymphocytes % 21 % Monocytes % 7 % Eosinophils % 3 % Basophils % 0 % Neutrophils # 4.1 (1.3-7.7) k/uL Lymphocytes # 1.3 (1.0-4.8) k/uL Monocytes # 0.4 (0-1.0) k/uL Eosinophils # 0.2 (0-0.7) k/uL Basophils # 0.0 (0-0.2) k/uL Sodium 135 L (137-145) mmol/L Potassium 3.3 L (3.5-5.1) mmol/L Chloride 101 (98-107) mmol/L Carbon Dioxide 22 (22-30) mmol/L Anion Gap 12 mmol/L BUN 13 (7-17) mg/dL Creatinine 0.88 (0.52-1.04) mg/dL Est GFR (CKD-EPI)AfAm 87 (>60 ml/min/1.73 sqM) Est GFR (CKD-EPI)NonAf 76 (>60 ml/min/1.73 sqM) Glucose 107 H (74-99) mg/dL Calcium 9.2 (8.4-10.2) mg/dL Total Bilirubin 0.3 (0.2-1.3) mg/dL AST 15 (14-36) U/L ALT 10 (9-52) U/L Alkaline Phosphatase 96 (38-126) U/L Total Protein 6.7 (6.3-8.2) g/dL Albumin 4.2 (3.5-5.0) g/dL Urine Color Light Yellow Urine Appearance Clear (Clear) Urine pH 5.5 (5.0-8.0) Ur Specific Mcclave 1.008 (1.001-1.035) Urine Protein Negative (Negative) Urine Glucose (UA) Negative (Negative) Urine Ketones Negative (Negative) Urine Blood Negative (Negative) Urine Nitrite Negative (Negative) Urine Bilirubin Negative (Negative) Urine Urobilinogen <2.0 (<2.0) mg/dL Ur Leukocyte Esterase Negative (Negative) Valproic Acid 99.0 ug/mL - EKG Data EKG Comments: EKG obtained at 1820 shows normal sinus rhythm with a ventricular rate of 73, ID interval 184, QRS duration 76, QT 402, QTc 442. No evidence of ST elevation or depression (Chantale Rivas) Disposition <Dale Funes - Last Filed: 06/02/19 19:49> Decision to Admit Reason: Admit from EC Decision Date: 06/02/19 Decision Time: 20:13 <Chantale Rivas - Last Filed: 06/02/19 20:14> Clinical Impression: Prolonged seizure Disposition: ADMITTED IP TO THIS [facility] Condition: Serious Referrals: Pavel Colin MD [Primary Care Provider] - 1-2 days
[2019-06-02 18:23] LABS: Basophils % (A) 0 %; Eosinophils # (A) 0.2 k/uL (0-0.7); Eosinophils % (A) 3 %; HCT 36.5 % (34.0-46.0); HGB 12.4 gm/dL (11.4-16.0); Lymphocytes # (A) 1.3 k/uL (1.0-4.8); Lymphocytes % (A) 21 %; MCH 31.8 pg (25.0-35.0); MCHC 34.1 g/dL (31.0-37.0); MCV 93.2 fL (80.0-100.0); Mean Platelet Volume 8.1; Monocytes # (A) 0.4 k/uL (0-1.0); Monocytes % (A) 7 %; Neutrophils # (A) 4.1 k/uL (1.3-7.7); Neutrophils % (A) 68 %; Platelet Count 178 k/uL (150-450); RBC 3.92 m/uL (3.80-5.40); RDW 13.8 % (11.5-15.5); WBC 6.1 k/uL (3.8-10.6)
[2019-06-02 18:28] LABS: Albumin 4.2 g/dL (3.5-5.0); Calcium 9.2 mg/dL (8.4-10.2); Potassium 3.3 mmol/L (3.5-5.1); Total Bilirubin 0.3 mg/dL (0.2-1.3); Total Protein 6.7 g/dL (6.3-8.2)
[2019-06-02] MEDS ORDERED: POTASSIUM CHLORIDE ER 20 MEQ TAB.ER PO STA (18:53)
[2019-06-02 19:23] LABS: Appearance,Urine Clear (Clear); Bilirubin,Urine Negative (Negative); Blood,Urine Negative (Negative); Color,Urine Light Yellow; Glucose,Urine (UA) Negative (Negative); Ketones,Urine Negative (Negative); Leukocyte Esterase,Urine Negative (Negative); Nitrite,Urine Negative (Negative); PH, Urine 5.5 (5.0-8.0); Protein,Urine Negative (Negative); Specific Gravity,Urine 1.008 (1.001-1.035); Urobilinogen,Urine <2.0 mg/dL (<2.0)
[2019-06-02] MEDS ORDERED: NALOXONE 0.4 MG/ML 1 ML VIAL IV PRN (20:09)
[2019-06-02 21:45] VITALS: BMI 28.3
[2019-06-02] MEDS ORDERED: LORazepam 2 MG/ML INJ IV PRN (22:48)
[2019-06-02] MEDS ORDERED: risperiDONE 1 MG TAB PO SCH (23:00)
[2019-06-02] MEDS ORDERED: traZODone HCL 100 MG TAB PO PRN (23:00)
[2019-06-02] MEDS ORDERED: ALPRAZolam 1 MG TAB PO PRN (23:00)
[2019-06-02] MEDS ORDERED: MELOXICAM 7.5 MG TAB PO PRN (23:00)
[2019-06-03] MEDS: FAMOTIDINE 20 MG TAB PO SCH ×2 (00:05→07:23)
[2019-06-03] MEDS: DIVALPROEX SPRINKLE 125 MG CAP.SPRINK PO SCH ×2 (00:05→07:22)
[2019-06-03] MEDS: DIVALPROEX 500 MG TABLET.DR PO SCH ×2 (00:05→07:22)
[2019-06-03] MEDS: carBAMazepine 400 MG TAB.ER.12H PO SCH ×2 (00:05→07:22)
[2019-06-03] MEDS: SERTRALINE 100 MG TAB PO SCH ×2 (00:06→07:23)
[2019-06-03] MEDS: GABAPENTIN 100 MG CAP PO SCH ×3 (00:06→15:13)
[2019-06-03] MEDS: SODIUM CHLORIDE 0.9% 1,000 ML IV SCH ×2 (00:09→12:43)
[2019-06-03] MEDS ORDERED: POTASSIUM CHLORIDE ER 20 MEQ TAB.ER PO STA (11:13)
--- NOTE | 2019-06-03 13:52 | P.HPIM ---
History of Present Illness 53-year-old the aga female came in the emergency department couple episodes of seizures patient appears to have possible seizures involving the right arm didn't lose consciousness patient did describe or like symptoms did denied any tongue biting patient doesn't have teeth or dentures at this time. Patient's seizures were witnessed by person living with her. Patient is on Depakote and carbamazepine levels of which are within normal limits. Patient didn't any missed any of her medications. Patient denied any fever chills dysuria no signs or symptoms of sepsis patient believes he is a precipitating factor for seizures. Patient denied any loss of bowel or bladder incontinence patient didn't lose consciousness but not a bit of the seizure episode patient had tonic clonic activity in the right arm without any secondary generalization. Review of Systems REVIEW OF SYSTEMS: CONSTITUTIONAL: No fever, no malaise, no fatigue. HEENT: No recent visual problems or hearing problems. Denied any sore throat. CARDIOVASCULAR: No chest pain, orthopnea, PND, no palpitations, no syncope. PULMONARY: No shortness of breath, no cough, no hemoptysis. GASTROINTESTINAL: No diarrhea, no nausea, no vomiting, no abdominal pain. NEUROLOGICAL: No headaches, no weakness, no numbness. HEMATOLOGICAL: Denies any bleeding or petechiae. GENITOURINARY: Denies any burning micturition, frequency, or urgency. MUSCULOSKELETAL/RHEUMATOLOGICAL: Denies any joint pain, swelling, or any muscle pain. ENDOCRINE: Denies any polyuria or polydipsia. The rest of the 14-point review of systems is negative. Past Medical History Past Medical History: Asthma, Osteoarthritis (OA), Seizure Disorder Additional Past Medical History / Comment(s): cognitive impairment History of Any Multi-Drug Resistant Organisms: None Reported, Unobtainable Past Surgical History: Orthopedic Surgery Additional Past Surgical History / Comment(s): L KNEE SURG Past Anesthesia/Blood Transfusion Reactions: No Reported Reaction Past Psychological History: Depression Smoking Status: Current every day smoker Past Alcohol Use History: None Reported Past Drug Use History: None Reported - Past Family History Mother Family Medical History: Seizure Disorder Father Family Medical History: Cancer, Diabetes Mellitus Medications and Allergies Home Medications Medication Instructions Recorded Confirmed Type carBAMazepine [carBAMazepine XR] 400 mg PO BID 12/27/14 06/03/19 History Ranitidine HCl 150 mg PO BID 12/29/14 06/03/19 History Divalproex [Depakote] 500 mg PO BID 01/17/19 06/03/19 History Gabapentin [Neurontin] 100 mg PO TID 01/17/19 06/03/19 History rOPINIRole HCL [Requip] 1 mg PO HS 01/17/19 06/03/19 History Divalproex ER [Depakote ER] 250 mg PO DAILY 06/03/19 06/03/19 History Ibuprofen [Motrin] 800 mg PO TID 06/03/19 06/03/19 History Loratadine [Claritin] 10 mg PO DAILY 06/03/19 06/03/19 History Montelukast [Singulair] 10 mg PO HS 06/03/19 06/03/19 History Omeprazole [PriLOSEC] 20 mg PO BID 06/03/19 06/03/19 History busPIRone HCl [Buspar] 10 mg PO BID 06/03/19 06/03/19 History traZODone HCL 150 mg PO BID 06/03/19 06/03/19 History Allergies Allergy/AdvReac Type Severity Reaction Status Date / Time cyclobenzaprine HCl Allergy Unknown Verified 06/03/19 11:36 [From Flexeril] oxaprozin [From Daypro] Allergy Unknown Verified 06/03/19 11:36 Physical Exam Vitals: Vital Signs Temp Pulse Pulse Resp BP BP Pulse Ox 06/03/19 05:15 98.1 F 70 14 119/83 96 06/02/19 21:30 97.9 F 77 18 146/94 06/02/19 20:50 98.7 F 68 18 136/91 97 06/02/19 20:40 136/91 97 06/02/19 20:30 174/86 06/02/19 20:20 78 174/86 97 06/02/19 20:10 70 174/86 98 06/02/19 20:00 72 20 165/79 06/02/19 19:50 68 165/79 98 06/02/19 19:40 62 165/79 96 06/02/19 19:30 68 155/72 06/02/19 19:20 70 155/72 98 06/02/19 19:10 78 155/72 98 06/02/19 19:00 69 148/60 06/02/19 18:50 76 148/60 100 06/02/19 18:40 71 148/60 100 06/02/19 18:30 81 160/83 99 06/02/19 18:20 75 160/83 99 06/02/19 18:10 78 160/83 99 06/02/19 18:00 79 168/81 06/02/19 17:50 86 168/81 100 06/02/19 17:40 84 168/81 100 06/02/19 17:30 89 152/90 06/02/19 17:27 98.7 F 91 16 152/90 97 Intake and Output 06/02/19 06/03/19 06/03/19 22:59 06:59 14:59 Other: Voiding Method Toilet Toilet # Voids 1 2 3 Weight 77.111 kg PHYSICAL EXAMINATION: GENERAL: The patient is alert and oriented x3, not in any acute distress. Well developed, well nourished. HEENT: Pupils are round and equally reacting to light. EOMI. No scleral icterus. No conjunctival pallor. Normocephalic, atraumatic. No pharyngeal erythema. No thyromegaly. CARDIOVASCULAR: S1 and S2 present. No murmurs, rubs, or gallops. PULMONARY: Chest is clear to auscultation, no wheezing or crackles. ABDOMEN: Soft, nontender, nondistended, normoactive bowel sounds. No palpable organomegaly. MUSCULOSKELETAL: No joint swelling or deformity. EXTREMITIES: No cyanosis, clubbing, or pedal edema. NEUROLOGICAL: Gross neurological examination did not reveal any focal deficits. SKIN: No rashes. Results CBC & Chem 7: 06/02/19 17:42 06/02/19 17:42 Labs: Abnormal Lab Results - Last 24 Hours (Table) 06/02/19 Range/Units 17:42 Sodium 135 L (137-145) mmol/L Potassium 3.3 L (3.5-5.1) mmol/L Glucose 107 H (74-99) mg/dL Thrombosis Risk Factor Assmnt - Choose All That Apply Any of the Below Risk Factors Present?: Yes Each Factor Represents 1 point: Age 41-60 years Other Risk Factors: No Other congenital or acquired thrombophilia - If yes, enter type in comment: No Thrombosis Risk Factor Assessment Total Risk Factor Score: 1 Thrombosis Risk Factor Assessment Level: Low Risk Assessment and Plan Plan: -Withdrawal seizures patient appears to have a simple partial seizures without any secondary generalization, patient the may need a third antiseizure medication are carbamazepine may need to be changed phenytoin will be continued. Presently patient is on both N and comes up in neurology will evaluate the patient depending on the recommendations will make changes in her antiseizure medications patient is presently on Ativan as needed for seizures patient will undergo EEG will be can be discharged later in the day after evaluation by neurology with any changes in antiseizure medications. -Asthma and COPD without any acute exacerbation Non-nicotine abuse: Counseling was provided -The systemic syndrome for which patient on Requip which will be continued patient is also on Neurontin for that which will be continued as well. Patient probably can be discharged depending on recommendations from neurology today
--- NOTE | 2019-06-03 13:52 | P.DS ---
Providers Date of admission: 06/02/19 19:51 Attending physician: Darin Chávez MD Consults: 06/02/19 20:12 Consult Physician Urgent Consulting Provider: Ralph Patel Consult Reason/Comments: seizures Do you want consulting provider notified?: Yes Primary care physician: Oneil Motta [facility] Course: Please refer to my HPI Patient Condition at Discharge: Serious Plan - Discharge Summary Discharge Rx Participant: No New Discharge Prescriptions: Continue carBAMazepine [carBAMazepine XR] 400 mg PO BID Ranitidine HCl 150 mg PO BID rOPINIRole HCL [Requip] 1 mg PO HS Gabapentin [Neurontin] 100 mg PO TID Divalproex [Depakote] 500 mg PO BID traZODone HCL 150 mg PO BID Omeprazole [PriLOSEC] 20 mg PO BID Montelukast [Singulair] 10 mg PO HS Loratadine [Claritin] 10 mg PO DAILY Ibuprofen [Motrin] 800 mg PO TID Divalproex ER [Depakote ER] 250 mg PO DAILY busPIRone HCl [Buspar] 10 mg PO BID Discharge Medication List carBAMazepine [carBAMazepine XR] 400 mg PO BID 12/27/14 [History] Ranitidine HCl 150 mg PO BID 12/29/14 [History] Divalproex [Depakote] 500 mg PO BID 01/17/19 [History] Gabapentin [Neurontin] 100 mg PO TID 01/17/19 [History] rOPINIRole HCL [Requip] 1 mg PO HS 01/17/19 [History] Divalproex ER [Depakote ER] 250 mg PO DAILY 06/03/19 [History] Ibuprofen [Motrin] 800 mg PO TID 06/03/19 [History] Loratadine [Claritin] 10 mg PO DAILY 06/03/19 [History] Montelukast [Singulair] 10 mg PO HS 06/03/19 [History] Omeprazole [PriLOSEC] 20 mg PO BID 06/03/19 [History] busPIRone HCl [Buspar] 10 mg PO BID 06/03/19 [History] traZODone HCL 150 mg PO BID 06/03/19 [History] Follow up Appointment(s)/Referral(s): Pavel Colin MD [STAFF PHYSICIAN] - 3 [facility], [NON-STAFF] -
[2019-06-03 14:17] VITALS: BP 177/90; PULSE 71; RESP 16; TEMP 98
--- NOTE | 2019-06-03 17:11 | CONS ---
CONSULTATION DATE OF SERVICE: 06/03/2019 HISTORY OF PRESENT ILLNESS: Thank you for allowing me to evaluate Anastasiia Cowart, who is a 53-year-old right-handed white female who presented to [facility] on 06/02/2019 following a breakthrough seizure. The patient states, "I think I had a seizure, but I am not sure." She was apparently at home with her boyfriend, who witnessed her having jerking of the right upper extremity, which is the last thing the patient can recall before waking up on the couch. She believes she lost consciousness for "a little bit." Boyfriend stated that the jerking only lasted a few minutes, although the patient apparently napped and woke up about one hour later. She stated her last seizure occurred 2 months ago, and this is her usual seizure frequency. With this episode, there was no associated tongue- biting (although patient is edentulous) or urine/stool incontinence. She believes this episode may have been provoked by the heat, as she does not have air conditioning and only fans in her apartment. The patient is maintained on Depakote, Tegretol and gabapentin. (The patient states gabapentin is being used for seizure prophylaxis.) She reports being compliant with medication. At this time the patient states she feels "good," is back to baseline and wants to go home. Previous anticonvulsant exposures have included Dilantin and phenobarbital. The patient states she began having seizures as an infant. She denies previous history of stroke. The patient states she previously followed with Dr. Munoz of Neurology but has not seen them for about a year, and her primary care physician has been providing her medication prescriptions. On presentation, valproic acid level was 99.0 and carbamazepine level 6.1. In reviewing her medical record, she had a previous EEG completed on 12/28/2014, read by Dr. Munoz as a normal study. Last CT of the brain on the computer from 01/17/2019 demonstrated atrophy and chronic small-vessel ischemic change, but no acute pathology was identified at that time. ALLERGIES: FLEXERIL and DAYPRO. HOME MEDICATIONS: 1. Trazodone 150 mg b.i.d. 2. Requip 1 mg at bedtime. 3. Tegretol XR 400 mg b.i.d. 4. BuSpar 10 mg b.i.d. 5. Zantac. 6. Prilosec. 7. Singulair. 8. Claritin. 9. Motrin. 10.Neurontin 100 mg t.i.d. 11.Depakote 500 mg b.i.d. 12.Depakote ER 250 mg daily. PAST MEDICAL HISTORY: 1. Seizures. 2. Static encephalopathy. 3. Asthma. 4. Osteoarthritis. 5. Restless legs syndrome. 6. Insomnia. 7. Depression. 8. Anxiety. 9. GERD. 10.Hypertension. 11.Tobacco abuse. PAST SURGICAL HISTORY: Left knee surgery. SOCIAL HISTORY: The patient smokes one pack per day and has smoked since she was 13 years of age. She denied alcohol or drug use. She is with 3 children and lives in an apartment with her boyfriend. She does not drive. She states she has a cane or walker available but more commonly uses the cane. Education background was through 9th grade, at which time the patient states she was transitioned into special education so she could learn at a slower pace and remained in school through 26 years of age. FAMILY HISTORY: The patient states both parents had history of seizures. Mother is alive and father is with history of kidney cancer. The patient stated none of her 3 children have seizures. REVIEW OF SYSTEMS: Fourteen systems are reviewed and no additional points are identified. review of systems documented in the history and physical. PHYSICAL EXAMINATION: Upon my arrival in the patient's room, she was lying in bed, receptive to the examiner. Affect is mildly flat. She is overweight, a fair historian. There are no family members at the bedside and the patient appears older than stated age. She is edentulous. VITAL SIGNS: Blood pressure is 137/90 with a pulse of 77, respiratory rate 16, temperature 98.0. Weight is 77.1 kg on a 5-foot 5-inch frame. SKIN AND EXTREMITIES: Post-surgical changes are noted at the left knee. HEAD AND NECK: No tenderness or signs of trauma. Neck is supple without meningeal signs. Arteries nontender and without bruits. HEART: Regular rate and rhythm. HIGHER CORTICAL FUNCTION: MENTAL STATUS: Patient was alert, oriented to self. She knew she was in "[facility]." She knew the floor, year, month, day of the week. She was able to name, repeat and read. There was no right/left disorientation, finger agnosia, extinction to double simultaneous stimulation or dysarthria. CRANIAL NERVES II THROUGH XII: The right pupil is 2 mm, somewhat oval-shaped, and minimally reactive. Left is 3 mm and reactive. No definite afferent pupillary defect. Visual michel were intact to confrontation. III, IV, : No ptosis. Extraocular movements are full. No nystagmus. V: Pinprick and light touch intact in all 3 divisions. Motor 5 intact. VII: No facial asymmetry or weakness. VIII: Acuity intact to finger rub. IX, X: Palate kate in the midline. XI: Trapezius strength intact. XII: Tongue protruded midline without fasciculation or atrophy. No tongue bite was noted. MOTOR EXAMINATION: There is no pronator drift. Normal bulk and tone is noted in all major muscle groups with no involuntary movements noted. Strength is 5/5 throughout. Sensory unreliable, as the patient switches sides between pinprick and light touch. Reflexes 1/4 on the upper extremities, 2/4 on the lower extremities. Plantar response is flexor bilaterally. Benitez's is absent. COORDINATION: [id number], [id number] movements are intact. Rapid alternating movements are symmetric with finger tapping. DIAGNOSTIC TESTING: The patient's lab work demonstrates a white blood cell count of 6.1, hemoglobin 12.4, platelet count 178. Sodium 135, potassium 3.3, BUN 13 with creatinine of 0.88. Valproic acid level on presentation 99.0. Carbamazepine level 6.1. Urinalysis revealed negative nitrite and leukocyte esterase. Calcium 9.2, ALT 10, AST 15. IMPRESSION: 1. Breakthrough seizure in a patient with a long history of seizures, maintained on Tegretol/Depakote/Neurontin. 2. Static encephalopathy. The patient was in special education after 9th grade. 3. Family history of seizures. 4. Medical problems, including asthma, osteoarthritis, restless legs syndrome, depression, anxiety, insomnia, gastroesophageal reflux disease, hypertension and tobacco abuse. RECOMMENDATIONS: 1. I discussed my impression and plan with the patient and nursing staff. 2. Will increase the patient's Tegretol XR to 500 mg b.i.d. (by adding a 100-mg pill to her 400-mg pills) and continue Depakote/Neurontin at the current doses. 3. Will check the EEG completed earlier today. 4. Obtain follow-up Depakote/Tegretol levels in one week with results to her primary care physician. 5. Would recommend the patient re-establish with Dr. Munoz. 6. The patient does not drive but was reminded of the [place] driving regulations of no driving x6 months following a seizure. 7. It would be acceptable to discharge the patient from a neurologic standpoint when medically stable. Thank you for allowing me to participate in the care of your patient. MMODL / IJN: [id number] /
--- NOTE | 2019-06-04 10:04 | EEG ---
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 This study is being done to rule out epileptiform discharges. FINDINGS: Wakefulness was obtained during the recording. In the maximal awake state, a moderate voltage 9 to 9.5 hertz posterior dominant background rhythm was demonstrated. This is regulated, sustained, symmetric and reactive to eye opening. Low-voltage faster frequencies were best seen over the frontal central head regions. Photic stimulation produced a symmetric driving response and a few flash frequencies. No sleep architecture was seen. No epileptiform discharges or focal lateralizing features are present. SUMMARY: Normal awake EEG. INTERPRETATION: This EEG is within normal limits for age. No epileptiform discharges or focal lateralizing features are present. MMODL / IJN: [id number] /
== END 2019-06-03 15:46 | disposition home health service (06) | DRG 101 ==
LOC: EC 17:19 → 4MS4W 19:51
PROVIDERS: ADMIT Internal Medicine; ATTEND Internal Medicine
DX: G40.109 Localization-related (focal) (partial) symptomatic epilepsy and epileptic syndromes with simple partial seizures, not intractable, without status epilepticus (principal); J44.9 Chronic obstructive pulmonary disease, unspecified; G31.84 Mild cognitive impairment of uncertain or unknown etiology; F32.9 Major depressive disorder, single episode, unspecified; F41.9 Anxiety disorder, unspecified; G25.81 Restless legs syndrome; K21.9 Gastro-esophageal reflux disease without esophagitis; I10 Essential (primary) hypertension; G47.00 Insomnia, unspecified; M19.90 Unspecified osteoarthritis, unspecified site; F17.210 Nicotine dependence, cigarettes, uncomplicated; Z71.6 Tobacco abuse counseling; Z79.1 Long term (current) use of non-steroidal anti-inflammatories (NSAID); Z79.899 Other long term (current) drug therapy; Z88.8 Allergy status to other drugs, medicaments and biological substances; Z80.51 Family history of malignant neoplasm of kidney; Z82.0 Family history of epilepsy and other diseases of the nervous system; Z83.3 Family history of diabetes mellitus
CPT/HCPCS: 36415; 80053; 80156; 80164; 81003; 85025; 93005; 95816; 96360; 99285

== ENCOUNTER → 2019-07-15 | Outpatient (CLI) | payer MEDICARE, OTHER ==
[2019-07-15 16:56] LABS: HCT 37.1 % (34.0-46.0); HGB 12.6 gm/dL (11.4-16.0); MCH 32.9 pg (25.0-35.0); MCHC 33.9 g/dL (31.0-37.0); MCV 97.2 fL (80.0-100.0); Mean Platelet Volume 7.5; Platelet Count 206 k/uL (150-450); RBC 3.81 m/uL (3.80-5.40); RDW 13.2 % (11.5-15.5); WBC 7.4 k/uL (3.8-10.6)
[2019-07-15 17:07] LABS: Carbamazepine (Tegretol) 8.7 ug/mL
[2019-07-15 17:09] LABS: Valproic Acid (Depakene) 97.9 ug/mL
== END | disposition home or self-care (01) ==
LOC: LABWHC1 16:25
PROVIDERS: ATTEND Internal Medicine
DX: R56.9 Unspecified convulsions (principal)
CPT/HCPCS: 36415; 80156; 80164; 85027

== ENCOUNTER → 2019-07-22 | Outpatient (CLI) | payer MEDICARE, OTHER ==
[2019-07-22 16:59] LABS: ALT 13 U/L (9-52); AST 21 U/L (14-36); African American GFR (CKD) 70 (>60 ml/min/1.73 sqM); Albumin 4.4 g/dL (3.5-5.0); Albumin/Globulin Ratio 1.7; Alkaline Phosphatase 102 U/L (38-126); Anion Gap 10 mmol/L; Blood Urea Nitrogen 10 mg/dL (7-17); Calcium 9.1 mg/dL (8.4-10.2); Carbon Dioxide 25 mmol/L (22-30); Chloride 97 mmol/L (98-107); Globulin 2.6 g/dL; Glucose 100 mg/dL (74-99); Potassium 4.5 mmol/L (3.5-5.1); Sodium 132 mmol/L (137-145); Total Bilirubin 0.2 mg/dL (0.2-1.3)
== END | disposition home or self-care (01) ==
LOC: LABWHC1 16:18
PROVIDERS: ATTEND Physician Assistant
DX: R56.9 Unspecified convulsions (principal)
CPT/HCPCS: 36415; 80053

== ENCOUNTER 2019-12-29 05:50 | Observation (INO) | payer MEDICARE, OTHER ==
[2019-12-27 18:46] VITALS: BMI 31.2
[2019-12-29] MEDS ORDERED: SCOPOLAMINE 1.5MG/72HR PATCH TRANSDERM ONE (05:54)
[2019-12-29] MEDS ORDERED: ONDANSETRON 4 MG/2 ML VIAL IVP ONE (05:54)
[2019-12-29] MEDS ORDERED: DEXAMETHASONE SOD PHOSPHATE 10 MG/ML 1 ML VIAL IV ONE (05:54)
[2019-12-29] MEDS ORDERED: LIDOCAINE 1% 20 ML VIAL (10MG/ML) FOR IV START INTRADERMA PRN (05:54)
[2019-12-29] MEDS ORDERED: HYDROmorphone 0.5 MG/0.5 ML SYRINGE IVP PRN ×3 (05:54→10:09)
[2019-12-29] MEDS: LACTATED RINGERS 1,000 ML IV SCH ×3 (06:30→19:29)
[2019-12-29] MEDS ORDERED: fentaNYL (PF) 50 MCG/ML 2 ML AMP IV ONE (07:06)
[2019-12-29] MEDS ORDERED: MIDAZOLAM 2 MG/2 ML VIAL IV ONE (07:06)
[2019-12-29] MEDS ORDERED: PROPOFOL 10 MG/ML 20 ML VIAL IV ONE (07:34)
[2019-12-29] MEDS ORDERED: MIDAZOLAM 2 MG/2 ML VIAL ONE (07:34)
[2019-12-29] MEDS ORDERED: SUCCINYLCHOLINE CHLORIDE 100 MG/5 ML SYR IV ONE (07:34)
[2019-12-29] MEDS ORDERED: ROPIVACAINE 5 MG/ML 30 ML VIAL ONE (07:34)
[2019-12-29] MEDS ORDERED: DEXAMETHASONE SOD PHOSPHATE 4 MG/ML 1 ML VIAL ONE (07:34)
[2019-12-29] MEDS ORDERED: HYDROmorphone (PF) 1 MG/ML ONE (07:34)
[2019-12-29] MEDS ORDERED: ePHEDrine SULFATE/0.9% NACL/PF 50 MG/5 ML SYRINGE IV ONE (07:34)
[2019-12-29] MEDS ORDERED: fentaNYL (PF) 50 MCG/ML 2 ML AMP ONE (07:34)
--- NOTE | 2019-12-29 08:01 | P.ANPRN ---
Procedure Note - Anesthesia - Nerve Block Performed Left Saphenous/Obturator Single Date of Procedure: 12/29/19 Procedure Start Time: 07:10 Procedure Stop Time: 07:17 Location of Patient: PreOp Indication: Acute Post-Operative Pain Specifically requested for management of pain by DrGuerita: Ralph Murguia Sedation Type: Sedate with meaningful contact maintained Preparation: Sterile Prep Position: Supine Catheter: None Needle Types: Pajunk Needle Gauge: 20 Ultrasound used to visualize needle placement: Yes Ultrasound used to observe medication spread: Yes Injectate: 0.5% Ropivacaine (see comment for volume) (20 cc) Blood Aspirated: No Pain Paresthesia on Injection Noted: No Resistance on Injection: Normal Image Stored and Saved: Yes Events: Uneventful and Well Tolerated
--- NOTE | 2019-12-29 09:30 | XR ---
EXAMINATION TYPE: XR ankle limited LT DATE OF EXAM: 12/29/2019 COMPARISON: NONE HISTORY: Postop TECHNIQUE: 2 intraoperative views submitted FINDINGS: Postsurgical change noted. Assessment limited due to resolution. IMPRESSION: Postoperative change
[2019-12-29] MEDS ORDERED: ONDANSETRON 4 MG/2 ML VIAL IVP PRN (10:09)
[2019-12-29] MEDS ORDERED: HYDROcodone/APAP 5-325MG 1 EACH TAB PO PRN (10:09)
--- NOTE | 2019-12-29 10:16 | P.OP ---
Date of Procedure: 12/29/19 Preoperative Diagnosis: 1. Left bimalleolar ankle fracture dislocation, subacute 2. Seizure disorder 3. Current cigarette smoker Postoperative Diagnosis: Same Procedure(s) Performed: 1. Open reduction internal fixation of left bimalleolar ankle fracture dislocation 2. Manual application of joint stress by physician for radiography, left ankle 3. Application of short-leg splint by physician, left ankle Anesthesia: BROOKLYNN, wily Surgeon: Ralph Murguia Business Development Specialist #1: Corey Shea Estimated Blood Loss (ml): 25 IV fluids (ml): 1,600 Pathology: none sent Condition: stable Disposition: PACU Indications for Procedure: The patient is a very pleasant 54-year-old year-old multiple medical problems who over a month ago sustained a left ankle fracture dislocation. She was seen in the office and placed in a well-padded splint in her ankle was reduced. She was sent for medical clearance. Unfortunately medical clearance took several weeks. During that course the patient was noncompliant was walking on her splint. She came into the office several times for splint changes because the splints became dirty and for falling apart. She eventually received medical clearance from both her soil sort worker and custom motorcycle painter. She was scheduled for surgery. We discussed the potential risks and complications of ankle fracture surgery, and discussed that her case may be more difficult since the fracture is more than 1 month out. We also discussed her medical comorbidities and how they may affect her ultimate outcome. We discussed potential risks and complications including but certainly not limited to risks from anesthesia, infection, delayed wound healing, nonunion, malunion, loss of fixation, postoperative instability the ankle mortise, DVT, PE, and inability to regain preinjury level of function, posterior medical arthritis, possibly loss of life or limb. Again the patient and her caregiver understand that she is at a greater risk of having a complication due to the subacute nature of her surgery from her index injury and her multiple medical comorbidities. They provided their consent to go forward with surgery. Description of Procedure: The patient was identified in preop holding the correct left leg was marked with my initials. I reviewed the consent form with the patient's family. All their questions were answered. A block was given by anesthesia. She was then brought back to the operating room. She was positioned on the OR table where general anesthetic and preoperative antibiotics were given. The splint was taken down and was found to be dirty with lots of dirt and grime within the splint. Prior to prepping the patient the left leg was scrubbed with chlorhexidine and a brush. A tourniquet was applied to the proximal aspect of the left leg. A bump was placed on the left buttock internally rotating the leg to neutral. The right leg was secured to the table with foam and tape. A ramp was placed on the left leg to facilitate imaging. The left leg was then prepped and draped in the standard sterile fashion. Prior to starting surgery timeout was performed identifying the correct patient, operative extremity, and procedure. The patient's leg was then elevated, exsanguinated with an Esmarch bandage, the tourniquet was inflated to 250 mmHg. I began by outlining a straight lateral incision to the lateral malleolus. Skin incision with a scalpel dissection was carried down carefully to the subcu tissues tissue with tenotomy scissors. The superficial peroneal nerve was identified proximally and carefully retracted. The fracture site was then exposed. There was abundant fibrous tissue surrounding the fracture edges consistent with early healing from the subacute presentation. This was all sharply debrided back to healthy bone to facilitate reduction. At this point after the fracture had been completely exposed reduction was attempted but the ankle mortise was unable to be reduced. Attention was then turned to the medial aspect of the ankle. A longitudinal incision was made over the medial malleolus. Dissection was carried down carefully to the medial malleolus fracture. Again there was abundant fibrous tissue and early clot interposed in the fracture site and medial joint space. This was all carefully debrided until the medial malleolus could be reduced and the ankle mortise was in place. The medial malleolus was then reduced and held with a K wire. Attention was then turned to the lateral malleolus. The fracture was reduced and held with a [id number] reduction clamp. Fluoroscopy was used to verify that the fibula was out to length and the ankle mortise was reasonably well reduced. A nonlocking 2.7 mm lag screw was placed across the fracture followed by a contoured distal fibular locking plate. Nonlocking screws were placed proximally and a single non-locking screws placed distally bring the plate down to bone. The distal cluster of holes were then filled with locking 35 screws. 2 nonlocking partially threaded solid 4.0 mm screws both measuring 55 mm were placed across the medial malleolus. Due to the patient's history of noncompliance and subacute presentation 2 syndesmotic screws were placed for additional fixation. Final fluoroscopic images were taken showing operative fixation of both the medial lateral malleolus with intact hardware. The ankle mortise is relatively well reduced on both views. A manual external rotation stress x-ray showed no widening. This is interpreted as a stable mortise construct. The wound was thoroughly irrigated and closed in layers. A sterile dressing was applied followed by a well-padded bulky Funes splint. The tourniquet was let down. After the tourniquet was let down there was bleeding saturating through the splint. The splint was taken down. The foot was found to be well perfused with palpable dorsalis pedis pulse. There was a steady ooze consistent with venous bleeding from the lateral incision. Pressure was applied to the wound and the patient's blood pressure was brought down from 160 systolic 220. This resulted in almost complete cessation of bleeding. A second sterile dressing was applied followed by another well-padded bulky Funes splint with the ankle in neutral. The patient was then extubated, transferred from the or table to the [facility], and brought to recovery having procedure well. Corey Shea PAC was required as a skilled advertising sales assistant due to the complexity of the case. Plan: The patient is going to be admitted overnight for IV antibiotics and discharge planning. She is to remain strictly nonweightbearing on her leg. DVT prophylaxis with Lovenox while in-house home on aspirin.
--- NOTE | 2019-12-29 10:29 | FL ---
EXAMINATION TYPE: FL guidance operating room DATE OF EXAM: 12/29/2019 HISTORY: Fluoroscopy time 1 minute and 50 seconds of fluoroscopy provided. IMPRESSION: 1. Fluoroscopy time.
[2019-12-29] MEDS ORDERED: HYDROmorphone 1 MG/ML 1 ML SYRINGE IVP ONE (10:31)
[2019-12-29] MEDS ORDERED: ALBUTEROL NEBULIZED 2.5 MG/3 ML INHALATION PRN (12:04)
[2019-12-29] MEDS ORDERED: LORazepam 2 MG/ML INJ IV PRN (12:07)
[2019-12-29] MEDS: DIVALPROEX ER 250 MG TAB.ER.24H PO SCH (12:54)
[2019-12-29] MEDS: busPIRone HCl 10 MG TAB PO SCH (12:55)
[2019-12-29] MEDS: hydrOXYzine PAMOATE 25 MG CAP PO PRN ×2 (12:55→19:27)
[2019-12-29] MEDS: HYDROmorphone 0.5 MG/0.5 ML SYRINGE IVP PRN ×2 (12:56→16:24)
[2019-12-29] MEDS: NICOTINE 14MG/24HR PATCH TRANSDERM SCH (13:53)
[2019-12-29 14:24] LABS: Basophils % (A) 0 %; Eosinophils % (A) 0 %; HCT 32.9 % (34.0-46.0); HGB 11.2 gm/dL (11.4-16.0); Lymphocytes # (A) 0.6 k/uL (1.0-4.8); Lymphocytes % (A) 5 %; MCH 33.1 pg (25.0-35.0); MCHC 33.9 g/dL (31.0-37.0); MCV 97.6 fL (80.0-100.0); Mean Platelet Volume 7.8; Monocytes # (A) 0.2 k/uL (0-1.0); Monocytes % (A) 2 %; Neutrophils # (A) 12.9 k/uL (1.3-7.7); Neutrophils % (A) 93 %; Platelet Count 237 k/uL (150-450); RBC 3.37 m/uL (3.80-5.40); RDW 12.5 % (11.5-15.5); WBC 13.9 k/uL (3.8-10.6)
[2019-12-29 14:37] LABS: ALT 8 U/L (4-34); AST 17 U/L (14-36); African American GFR (CKD) >90 (>60 ml/min/1.73 sqM); Albumin 3.8 g/dL (3.5-5.0); Alkaline Phosphatase 93 U/L (38-126); Anion Gap 7 mmol/L; Blood Urea Nitrogen 15 mg/dL (7-17); Calcium 8.7 mg/dL (8.4-10.2); Carbon Dioxide 27 mmol/L (22-30); Chloride 93 mmol/L (98-107); Glucose 131 mg/dL (74-99); Non-African American GFR(CKD) 84 (>60 ml/min/1.73 sqM); Potassium 4.8 mmol/L (3.5-5.1); Sodium 127 mmol/L (137-145); Total Bilirubin 0.4 mg/dL (0.2-1.3)
[2019-12-29] MEDS: carBAMazepine 100 MG TAB.ER.12H PO SCH ×2 (16:23→21:29)
[2019-12-29] MEDS: PANTOPRAZOLE 40 MG TABLET PO SCH (16:23)
[2019-12-29] MEDS: GABAPENTIN 100 MG CAP PO SCH ×2 (16:23→21:29)
[2019-12-29] MEDS: HYDROcodone/APAP 5-325MG 1 EACH TAB PO PRN (19:27)
--- NOTE | 2019-12-29 20:20 | CONS ---
CONSULTATION DATE OF SERVICE: 12/29/2019 REASON FOR CONSULTATION: Advice regarding asthma, hypertension and other medical issues, requested by Dr. Murguia. HISTORY OF PRESENT ILLNESS: This 54-year-old woman with a past medical history of asthma, GERD, hypertension, DJD, history of seizure disorder, history of cognitive impairment, grand mal and petit mal seizure, being followed by Dr. Riggs in the outpatient setting, underwent ORIF of left bimalleolar ankle fracture dislocation by Dr. Murguia. earlier the patient was slightly belligerent. Patient is demanding to go home right at this moment. Otherwise, there is no history of any fever, rigors or chills. No history of headache, loss of consciousness, seizures at this time. PAST MEDICAL HISTORY: History of asthma, GERD, hypertension, DJD, seizure disorder, cognitive impairment, depression, schizoaffective disorder. HOME MEDICATIONS: 1. Motrin 800 mg t.i.d. p.r.n. 2. Requip 1 mg p.o. b.i.d. 3. Tegretol-XR 100 mg p.o. t.i.d. 4. BuSpar 100 mg p.o. daily. 5. Zoloft 100 mg p.o. b.i.d. 6. Antivert 12.5 mg p.o. daily. 7. Imodium 82 mg p.o. b.i.d. 8. Otoe 5 mg 2 tablets q.6 p.r.n. 9. Neurontin 100 mg p.o. t.i.d. 10.Depakote 500 mg p.o. b.i.d. 11.Depakote ER 250 mg p.o. daily. 12.Lioresal 20 mg p.o. b.i.d. 13.Ventolin 2 puffs q.6 p.r.n. 14.Singulair 10 mg p.o. daily. 15.Tegretol 400 mg p.o. b.i.d. 16.Omeprazole 10 mg p.o. b.i.d. 17.Risperdal 3 mg p.o. at bedtime. 18.Claritin 10 mg p.o. daily. ALLERGIES: FLEXERIL, DAYPRO, BACTRIM. FAMILY HISTORY: History of diabetes mellitus, cancer. SOCIAL HISTORY: History of smoking. No history of alcohol intake. REVIEW OF SYSTEMS: ENT: No diminished hearing. No diminished vision. CARDIOVASCULAR SYSTEM: No angina, palpitations. RESPIRATORY SYSTEM: No cough, hemoptysis. GI: No nausea, vomiting. : No dysuria or retention. NERVOUS SYSTEM: As mentioned earlier. ALLERGY/IMMUNOLOGY: No asthma, hayfever. MUSCULOSKELETAL: As mentioned earlier. HEMATOLOGY/ONCOLOGY: No history of anemia. ENDOCRINE: No history of diabetes, hypothyroidism. CONSTITUTIONAL: As mentioned earlier. DERMATOLOGY: Negative. RHEUMATOLOGY: Negative. PSYCHIATRY: As mentioned earlier. PHYSICAL EXAMINATION: Patient alert and oriented x3. Pulse 92, blood pressure 96/61, respiration 16, temperature normal, pulse ox 94% on room air. HEENT: Conjunctivae normal. Oral mucosa moist. NECK: No jugular venous distention. No carotid bruit. No lymph node enlargement. CARDIOVASCULAR SYSTEM: S1, S2 muffled. No S3. No S4. RESPIRATORY SYSTEM: Breath sounds diminished at the bases. A few scattered rhonchi. No crackles. ABDOMEN: Soft, non-tender. No mass palpable. LEGS: Status post foot surgery on the left. NERVOUS SYSTEM: Higher functions as mentioned earlier. Moves all 4 limbs. No focal deficit. LYMPHATICS: No lymph node palpable in neck, axillae or groin. SKIN: No ulcer, rash, bleeding. JOINTS: No active deforming arthropathy. LABS: The preoperative labs are not available. ASSESSMENT: 1. Status post open reduction internal fixation of the left bimalleolar ankle fracture dislocation. 2. Change in mental status, possible acute delirium versus mild psychosis immediately postoperatively. 3. History of asthma. 4. Gastroesophageal reflux disease. 5. Hypertension. 6. History of degenerative joint disease. 7. History of seizure disorder. 8. History of cognitive impairment. 9. History of grand mal and petit mal seizures. 10.History of depression. 11.Schizoaffective disorder. 12.History of continued ongoing nicotine dependence. 13.FULL CODE. RECOMMENDATIONS AND DISCUSSION: In this 54-year-old woman who presented with multiple complex medical issues after surgery, at this time I recommend to continue the current medications, continue symptomatic treatment. I recommend resuming the home medications, including the psychotic medications. Otherwise, I would also recommend a Habitrol patch and also use p.r.n. Ativan to control the mood at this time. Otherwise, the family could be contacted to ensure compliance. Otherwise, we will follow the patient closely with you. Pain medication. DVT prophylaxis. The patient may be asked to follow with Dr. Riggs closely after discharge. Thank you, Dr. Murguia, for letting us participate in the care of this patient. Discussed at length with the staff. RUPAL / SEEMA: [id number] / MTDD
[2019-12-29] MEDS: SERTRALINE 100 MG TAB PO SCH (20:49)
[2019-12-29] MEDS: carBAMazepine 200 MG TAB PO SCH (20:49)
[2019-12-29] MEDS: BACLOFEN 10 MG TAB PO SCH (20:49)
[2019-12-29] MEDS: DIVALPROEX 500 MG TABLET.DR PO SCH (20:49)
[2019-12-29] MEDS: LOPERAMIDE 2 MG CAP PO SCH (20:49)
[2019-12-29] MEDS ORDERED: risperiDONE 1 MG TAB PO SCH (21:00)
[2019-12-29] MEDS ORDERED: SENNOSIDES-DOCUSATE SODIUM 1 EACH TAB PO PRN (21:00)
[2019-12-30] MEDS: LACTATED RINGERS 1,000 ML IV SCH ×2 (00:38→16:48)
[2019-12-30] MEDS: HYDROcodone/APAP 5-325MG 1 EACH TAB PO PRN ×2 (05:10→13:03)
[2019-12-30] MEDS: HYDROmorphone 0.5 MG/0.5 ML SYRINGE IVP PRN (07:16)
[2019-12-30] MEDS: NICOTINE 14MG/24HR PATCH TRANSDERM SCH (07:17)
[2019-12-30] MEDS: PANTOPRAZOLE 40 MG TABLET PO SCH (07:17)
[2019-12-30] MEDS: LOPERAMIDE 2 MG CAP PO SCH (07:17)
[2019-12-30] MEDS ORDERED: MONTELUKAST 10 MG TAB PO SCH (09:00)
[2019-12-30] MEDS ORDERED: LORATADINE 10 MG TAB PO SCH (09:00)
[2019-12-30] MEDS ORDERED: MECLIZINE 12.5 MG TAB PO SCH (09:00)
[2019-12-30] MEDS ORDERED: ENOXAPARIN 40 MG/0.4 ML SYRINGE SQ SCH (09:00)
[2019-12-30] MEDS: GABAPENTIN 100 MG CAP PO SCH ×2 (09:18→16:48)
[2019-12-30] MEDS: carBAMazepine 100 MG TAB.ER.12H PO SCH ×2 (09:18→16:48)
[2019-12-30] MEDS: DIVALPROEX 500 MG TABLET.DR PO SCH (09:18)
[2019-12-30] MEDS: BACLOFEN 10 MG TAB PO SCH (09:18)
[2019-12-30] MEDS: SERTRALINE 100 MG TAB PO SCH (09:18)
[2019-12-30] MEDS: carBAMazepine 200 MG TAB PO SCH (09:18)
[2019-12-30] MEDS: DIVALPROEX ER 250 MG TAB.ER.24H PO SCH (13:03)
[2019-12-30] MEDS: busPIRone HCl 10 MG TAB PO SCH (13:03)
[2019-12-30 16:21] VITALS: RESP 17
[2019-12-30 16:22] VITALS: BP 117/75; PULSE 89; TEMP 98.5
--- NOTE | 2019-12-30 16:34 | P.DS ---
Providers Date of admission: 12/30/19 13:06 Expected date of discharge: 12/30/19 Attending physician: Ralph Murguia Consults: 12/29/19 10:09 Consult Physician Routine Consulting Provider: Evin Encarnacion Consult Reason/Comments: Medical management Do you want consulting provider notified?: Yes Primary care physician: Oneil Doe [facility] Course: This patient is a 54-year-old female who sustained a fall resulting in a left ankle fracture. Patient was initially seen in the office by Dr. Murguia and placed into a well-padded bulky Funes splint. Patient underwent an open reduction and internal fixation of the left ankle on 12/29/[address] Murguia. She was admitted to our service following the procedure for pain control, IV antibiotics, internal medicine consultation, and discharge planning. The procedure is performed without complication or sequelae. The patient is doing well postoperatively. Vital signs are stable on postop day #1. The patient is examined bedside this morning. She states she is feeling very well and is experiencing minimal pain in the left ankle. Patient is tolerating her diet well. She denies chest pain, shortness of breath, nausea, vomiting, fevers, chills, numbness or tingling of the left lower extremity. Overall she is doing well, she has no new complaints today. Vital signs stable. Per nursing, patient was able to transfer with physical therapy while remaining non-weight bearing on the operative leg without issues. On examination, the patient is sitting up in bed in no acute distress. Patient is alert and orientated x3. On inspection of the left lower extremity, there is a bulky Funes splint in place. Splint is clean, dry, intact. Small area of the posterior heel is saturated with blood. Patient is able to wiggle toes without issue. The toes are warm and well-perfused with brisk capillary refill. Sensation is intact to light touch of the dorsal and plantar foot, as well as first dorsal webspace. The right calf is soft and non-tender to palpation. Right lower extremity compression cuff in place. The patient is discharged home today with home health services and social work home visit, pending medical clearance today. Please refer to the med rec for accurate list of medications. Patient Condition at Discharge: Fair Plan - Discharge Summary Discharge Rx Participant: No New Discharge Prescriptions: New Hydrocodone/Acetaminophen [Bingen 5-325] 1 tab PO Q6HR PRN #30 tab PRN Reason: Pain Aspirin 325 mg PO DAILY #14 tab Calcium Carbonate [Tums] 500 mg PO QID #90 chewable Ergocalciferol [Vitamin D2] 50,000 unit PO Q72H #14 cap Cholecalciferol (Vitamin D3) [Vitamin D3] 2,000 unit PO DAILY #30 capsule No Action rOPINIRole HCL [Requip] 1 mg PO BID Gabapentin [Neurontin] 100 mg PO TID Divalproex [Depakote] 500 mg PO BID Ibuprofen [Motrin] 800 mg PO TID PRN PRN Reason: Pain Divalproex ER [Depakote ER] 250 mg PO DAILY@1300 busPIRone HCl [Buspar] 10 mg PO DAILY@1300 Baclofen [Lioresal] 20 mg PO BID Loperamide HCl [Imodium A-D] 2 mg PO BID Sertraline [Zoloft] 100 mg PO BID Meclizine [Antivert] 12.5 mg PO DAILY Albuterol Inhaler [Ventolin Hfa Inhaler] 2 puff INHALATION RT-Q6H PRN PRN Reason: Dyspnea HYDROcodone/APAP 5-325MG [Bingen 5-325] 2 tab PO Q6HR PRN PRN Reason: Pain carBAMazepine [TEGretol XR] 100 mg PO TID Montelukast [Singulair] 10 mg PO DAILY carBAMazepine [TEGretol] 400 mg PO Q12H Omeprazole 10 mg PO BID risperiDONE [RisperDAL] 3 mg PO HS Loratadine [Claritin] 10 mg PO DAILY Discharge Medication List Divalproex [Depakote] 500 mg PO BID 01/17/19 [History] Gabapentin [Neurontin] 100 mg PO TID 01/17/19 [History] rOPINIRole HCL [Requip] 1 mg PO BID 01/17/19 [History] Divalproex ER [Depakote ER] 250 mg PO DAILY@1300 06/03/19 [History] Ibuprofen [Motrin] 800 mg PO TID PRN 06/03/19 [History] busPIRone HCl [Buspar] 10 mg PO DAILY@1300 06/03/19 [History] Albuterol Inhaler [Ventolin Hfa Inhaler] 2 puff INHALATION RT-Q6H PRN 11/18/19 [History] Baclofen [Lioresal] 20 mg PO BID 11/18/19 [History] Loperamide HCl [Imodium A-D] 2 mg PO BID 11/18/19 [History] Meclizine [Antivert] 12.5 mg PO DAILY 11/18/19 [History] Sertraline [Zoloft] 100 mg PO BID 11/18/19 [History] HYDROcodone/APAP 5-325MG [Bingen 5-325] 2 tab PO Q6HR PRN 12/27/19 [History] Loratadine [Claritin] 10 mg PO DAILY 12/27/19 [History] Montelukast [Singulair] 10 mg PO DAILY 12/27/19 [History] Omeprazole 10 mg PO BID 12/27/19 [History] carBAMazepine [TEGretol XR] 100 mg PO TID 12/27/19 [History] carBAMazepine [TEGretol] 400 mg PO Q12H 12/27/19 [History] risperiDONE [RisperDAL] 3 mg PO HS 12/27/19 [History] Aspirin 325 mg PO DAILY #14 tab 12/30/19 [Rx] Calcium Carbonate [Tums] 500 mg PO QID #90 chewable 12/30/19 [Rx] Cholecalciferol (Vitamin D3) [Vitamin D3] 2,000 unit PO DAILY #30 capsule 12/30/19 [Rx] Ergocalciferol [Vitamin D2] 50,000 unit PO Q72H #14 cap 12/30/19 [Rx] Hydrocodone/Acetaminophen [Bingen 5-325] 1 tab PO Q6HR PRN #30 tab 12/30/19 [Rx] Follow up Appointment(s)/Referral(s): [facility], [NON-STAFF] - As Needed Ralph Murguia MD [Medical Doctor] - 01/13/20 10:00 am Patient Instructions/Handouts: External Fixation of an Ankle Fracture (DC) Activity/Diet/Wound Care/Special Instructions: -Strict non-weight bearing on your operative leg. Do not remove your splint; Keep splint clean, dry, and intact -Use crutches, knee scooter, or a walker to ambulate after surgery. -Elevate and ice operative leg to help reduce swelling and control pain. -Take pain medications as prescribed. Take Colace as a stool softener. Take aspirin as prescribed for blood clot prevention. -Follow-up appointment with Dr. Murguia in the office in 2 weeks. -Call the office with any questions or concerns, Discharge Disposition: HOME WITH HOME HEALTH SERVICES
[2019-12-30] MEDS ORDERED: CALCIUM CARB-VIT D 500MG-200UN 1 EACH TAB PO SCH (17:30)
--- NOTE | 2019-12-30 21:10 | PN ---
PROGRESS NOTE DATE OF SERVICE: 12/30/2019 This is a 54-year-old woman who was admitted after ORIF of the left bimalleolar ankle fracture and dislocation is being closely monitored. No chest pain. No palpitations. No fever. Apparently the patient is planned to go home. EXAM: Alert and oriented x2. Pulse 89, blood pressure 117/75, respirations 17, temperature 98.4, pulse ox 98% on room air. HEENT: Conjunctivae normal. NECK: No JVD. CARDIOVASCULAR: S1, S2 normal. RESPIRATORY: Breath sounds diminished in the bases. No rhonchi. No crackles. ABDOMEN soft. LEGS status post surgery. CENTRAL NERVOUS SYSTEM: No focal deficits. LAB STUDIES: Sodium 127. WBC 13.2, hemoglobin 11.7. ASSESSMENT: 1. Status post open reduction/internal fixation of the left bimalleolar ankle fracture dislocation. 2. Change in mental status, possible acute delirium versus mild psychosis immediately postoperatively improved. 3. History of asthma. 4. Gastroesophageal reflux disease. 5. Hypertension. 6. Low vitamin D deficiency. 7. History of degenerative joint disease. 8. History of seizure disorder. 9. History of cognitive impairment. 10.History of grand mal seizures. 11.History of depression. 12.History of schizoaffective disorder. 13.History of continued ongoing nicotine dependence. 14.Hyponatremia and increased WBC. 15.FULL CODE. RECOMMENDATIONS AND DISCUSSION: I recommend to continue current medications, management and symptomatic treatment. Otherwise, pain medication, DVT prophylaxis. I would recommend continue the current management. I would also recommend to check UA with micro vitamin D supplementation. Closely monitor. Further recommendations to follow. MMODL / IJN: [id number] / MTDNolvia
== END 2019-12-30 18:00 | disposition home health service (06) ==
LOC: OR 05:50 → MERGE 08:15 → 4SSUR 10:55 → OR 12-30 13:06 → 4SSUR 12-30 13:06
PROVIDERS: ADMIT Orthopaedic Surgery; ATTEND Orthopaedic Surgery
DX: S82.842A Displaced bimalleolar fracture of left lower leg, initial encounter for closed fracture (principal); Z91.19 Patient's noncompliance with other medical treatment and regimen; G40.409 Other generalized epilepsy and epileptic syndromes, not intractable, without status epilepticus; G40.A09 Absence epileptic syndrome, not intractable, without status epilepticus; F17.210 Nicotine dependence, cigarettes, uncomplicated; I10 Essential (primary) hypertension; F32.9 Major depressive disorder, single episode, unspecified; J45.909 Unspecified asthma, uncomplicated; K21.9 Gastro-esophageal reflux disease without esophagitis; G31.84 Mild cognitive impairment of uncertain or unknown etiology; F25.9 Schizoaffective disorder, unspecified; M19.90 Unspecified osteoarthritis, unspecified site; E55.9 Vitamin D deficiency, unspecified; E87.1 Hypo-osmolality and hyponatremia; K08.109 Complete loss of teeth, unspecified cause, unspecified class; Z79.899 Other long term (current) drug therapy; Z79.1 Long term (current) use of non-steroidal anti-inflammatories (NSAID); Z79.891 Long term (current) use of opiate analgesic; Z97.3 Presence of spectacles and contact lenses; Z88.8 Allergy status to other drugs, medicaments and biological substances; Z88.2 Allergy status to sulfonamides; Z88.6 Allergy status to analgesic agent; Z98.890 Other specified postprocedural states; Z83.3 Family history of diabetes mellitus; Z80.9 Family history of malignant neoplasm, unspecified; X58.XXXA Exposure to other specified factors, initial encounter
CPT/HCPCS: 27814; 94640; 97161; 97166; 64447; 76942; 80053; 85025; 82306; 73600; G0378; C1713; S4990 ×2; J2250; J1100 ×2; J0690; J2405; J1650; J3010; J1170 ×3; J2795; J0330; J2704; 64450

== ENCOUNTER → 2020-07-12 | Outpatient (CLI) | payer MEDICARE, OTHER ==
--- NOTE | 2020-07-12 14:43 | MM ---
Reason for exam: clinical finding. History: Patient is postmenopausal. Family history of breast cancer in mother at age 45. Physical Findings: Nurse Summary: 1.5 x 2cm nodule in the left breast at 9 o'clock/nipple (nurse ts). [facility] Diagnostic Mammo w CAD ROXANNA Bilateral CC and MLO view(s) were taken. The breast tissue is heterogeneously dense. This may lower the sensitivity of mammography. Benign calcifications. Skin thickening and left nipple inversion. These results were verbally communicated with the patient and result sheet given to the patient on 07/12/20. ASSESSMENT: Incomplete: need additional imaging evaluation, BI-RAD 0 RECOMMENDATION: Ultrasound of the left breast.
--- NOTE | 2020-07-12 14:45 | USB ---
Reason for exam: additional evaluation requested from abnormal screening. History: Patient is postmenopausal. Family history of breast cancer in mother at age 45. US Breast Limited LT Left limited breast ultrasound including focal area of concern, retroareolar and axilla demonstrates a 1.8 x 1.3 x 2.8cm solid, hypoechoic, vascular lesion at the posterior nipple. These results were verbally communicated with the patient and result sheet given to the patient on 07/12/20. ASSESSMENT: Suspicious, BI-RAD 4 RECOMMENDATION: Ultrasound core biopsy of the left breast. Called Dr. Denny with mammographic findings and has scheduled an appointment for the patient for 07/24/20 at 1:[address] Hector. PRELIMINARY REPORT CALLED AND FAXED TO DR. HECTOR ON 07/12/20.
== END | disposition home or self-care (01) ==
LOC: RADMAMWWP 11:13
PROVIDERS: ATTEND Family Medicine
DX: N64.52 Nipple discharge (principal); N63.20 Unspecified lump in the left breast, unspecified quadrant
CPT/HCPCS: 77066

== ENCOUNTER → 2020-08-14 | Day surgery (SDC) | payer MEDICARE, OTHER ==
[2020-08-14 12:42] VITALS: RESP 16
[2020-08-14 14:20] VITALS: BP 174/84; PULSE 65; TEMP 97.4
--- NOTE | 2020-08-15 10:43 | USB ---
EXAMINATION TYPE: US biopsy breast VAD LT DATE OF EXAM: 08/14/2020 CLINICAL HISTORY: N63 Breast mass. TECHNIQUE: Ultrasound guided vaccuum assisted core biopsy of left breast. COMPARISON: NONE FINDINGS: Ultrasound mammogram images are reviewed. The ultrasound guided core biopsy procedure was explained to the patient. The risks, benefits, alternatives were discussed. An informed consent was then obtained. Timeout was performed. The patient was placed in supine positioning for imaging and for the procedure. The overlying skin was prepped with betadine and sterilely draped in usual sterile fashion. Lidocaine 1% was used as anesthetic into the skin and 1% lidocaine with epinephrine for the deeper breast tissue up to area of concern in the breast. A small skin elisa was made with surgical scalpel. Under ultrasound guidance, a 12-gauge vacuum assisted biopsy device was used to obtain 5 core samples. A biopsy clip was left in lesion. Wing clip was placed. Good hemostasis was obtained with direct pressure. Discharge instructions were discussed with the patient and the patient's caregiver present. The patient will follow up with the referring physician for results. Postprocedure mammogram: The patient was transferred to mammography for physician ordered post procedure mammogram for clip placement verification. The clip is in the expected region of the biopsy. The patient tolerated the procedure well without any immediate complication. The patient was discharged to home in stable condition. IMPRESSION: 1. Successful ultrasound guided biopsy left breast. Pathology Results: Benign LEFT BREAST, ULTRASOUND GUIDED CORE BIOPSY: Inflamed granulation tissue suggestive of abscess cavity, hemosiderin laden histiocytes and adjacent fibrosis. Negative for malignancy. Recommendation Follow up ultrasound of the left breast in 6 months. ALBERTO
--- NOTE | 2020-08-15 10:43 | MM ---
EXAMINATION TYPE: US biopsy breast VAD LT DATE OF EXAM: 08/14/2020 CLINICAL HISTORY: N63 Breast mass. TECHNIQUE: Ultrasound guided vaccuum assisted core biopsy of left breast. COMPARISON: NONE FINDINGS: Ultrasound mammogram images are reviewed. The ultrasound guided core biopsy procedure was e xplained to the patient. The risks, benefits, alternatives were discussed. An informed consent was then obtained. Timeout was performed. The patient was placed in supine positioning for imaging and for the procedure. The overlying skin w as prepped with betadine and sterilely draped in usual sterile fashion. Lidocaine 1% was used as ane sthetic into the skin and 1% lidocaine with epinephrine for the deeper breast tissue up to area of co ncern in the breast. A small skin elisa was made with surgical scalpel. Under ultrasound guidance, a 12-gauge vacuum assisted biopsy device was used to obtain 5 core samples . A biopsy clip was left in lesion. Wing clip was placed. Good hemostasis was obtained with direct pressure. Discharge instructions were discussed with the pa tient and the patient's caregiver present. The patient will follow up with the referring physician f or results. Postprocedure mammogram: The patient was transferred to mammography for physician ordered post proced ure mammogram for clip placement verification. The clip is in the expected region of the biopsy. The patient tolerated the procedure well without any immediate complication. The patient was dischar ged to home in stable condition. IMPRESSION: 1. Successful ultrasound guided biopsy left breast.
== END ==
LOC: RADUSWWP 12:18
PROVIDERS: ATTEND Surgery
DX: N63.20 Unspecified lump in the left breast, unspecified quadrant (principal); N61.0 Mastitis without abscess; R92.8 Other abnormal and inconclusive findings on diagnostic imaging of breast
CPT/HCPCS: 88305; 77065; 19083; A4648; J2001

== ENCOUNTER 2022-08-28 04:23 | Emergency (ER) | payer MEDICARE, OTHER ==
--- NOTE | 2022-08-28 04:34 | ED ---
General Adult HPI - General Stated complaint: Fall Time Seen by Provider: 08/28/22 04:24 - History of Present Illness Initial comments: Dictation was produced using [employer] dictation software. please excuse any grammatical, word or spelling errors. Chief Complaint: 56 year old female with multiple comorbidities presents to emergency department after fall History of Present Illness: Is 56-year-old female she has past medical history of seizures, vertigo or she woke up this morning went to the bathroom. She stated that when she tried to stand up and she fell. Patient has a history of equilibrium issues. She takes Antivert. Patient allegedly states that she hasn't been compliant with her medications for the last week. Patient complains neck pain. Denies any numbness or paresthesias to the arms or legs. No loss of consciousness. Patient does not take any anticoagulation medications. Patient denies any history of cardiac disease. The ROS documented in this emergency department record has been reviewed and confirmed by me. Those systems with pertinent positive or negative responses have been documented in the HPI. All other systems are other negative and/or noncontributory. PHYSICAL EXAM: General Impression: Alert and oriented x3, not in acute distress, wearing c- collar HEENT: Normocephalic atraumatic, extra-ocular movements intact, pupils equal and reactive to light bilaterally, mucous membranes moist. Cardiovascular: Heart regular rate and rhythm Chest: Able to complete full sentences, no retractions, no tachypnea Abdomen: abdomen soft, non-tender, non-distended, no organomegaly Musculoskeletal: Pulses present and equal in all extremities, no peripheral edema Motor: no focal deficits noted Neurological: CN II-XII grossly intact, no focal motor or sensory deficits noted Skin: Intact with no visualized rashes Psych: Normal affect and mood ED course: 56-year-old female presents after fall. Patient has chronic history of vertigo and equilibrium issues. Vital signs upon arrival are within ac ceptable limits. Return evaluation obtained. CBC, metabolic panel is unremarkable. Abdominal labs negative. Computed tomography scan of the head and C-spine, pelvis x-ray chest x-ray are negative for acute medical processes. Patient reevaluated at bedside at 5:45 AM found to be in stable medical condition. Patient be discharged. EKG interpretation: Ventricular rate 73, sinus rhythm,. Interval to 1, QRS 80, QTC 414. No WA prolongation, no QTC prolongation, no ST or T-wave changes noted. Overall, this EKG is unremarkable - Related Data Home Medications Medication Instructions Recorded Confirmed Divalproex [Depakote] 500 mg PO BID 01/17/19 08/14/20 Gabapentin [Neurontin] 100 mg PO TID 01/17/19 08/14/20 rOPINIRole HCL [Requip] 1 mg PO BID 01/17/19 08/14/20 Divalproex ER [Depakote ER] 250 mg PO DAILY@1300 06/03/19 08/14/20 Ibuprofen [Motrin] 800 mg PO TID PRN 06/03/19 08/14/20 busPIRone HCl [Buspar] 10 mg PO DAILY@1300 06/03/19 08/14/20 Albuterol Inhaler [Ventolin Hfa 2 puff INHALATION RT-Q6H PRN 11/18/19 08/14/20 Inhaler] Baclofen [Lioresal] 20 mg PO BID 11/18/19 08/14/20 Loperamide HCl [Imodium A-D] 2 mg PO BID 11/18/19 08/14/20 Meclizine [Antivert] 12.5 mg PO DAILY 11/18/19 08/14/20 Sertraline [Zoloft] 100 mg PO BID 11/18/19 08/14/20 Loratadine [Claritin] 10 mg PO DAILY 12/27/19 08/14/20 Montelukast [Singulair] 10 mg PO DAILY 12/27/19 08/14/20 Omeprazole 10 mg PO BID 12/27/19 08/14/20 carBAMazepine [TEGretol XR] 100 mg PO TID 12/27/19 08/14/20 carBAMazepine [TEGretol] 400 mg PO Q12H 12/27/19 08/14/20 risperiDONE [RisperDAL] 3 mg PO HS 12/27/19 08/14/20 Famotidine [Pepcid] 10 mg PO DAILY 08/14/20 08/14/20 Previous Rx's Medication Instructions Recorded Aspirin 325 mg PO DAILY #14 tab 12/30/19 Calcium Carbonate [Tums] 500 mg PO QID #90 chewable 12/30/19 Cholecalciferol (Vitamin D3) 2,000 unit PO DAILY #30 capsule 12/30/19 [Vitamin D3] Ergocalciferol [Vitamin D2] 50,000 unit PO Q72H #14 cap 12/30/19 Allergies Allergy/AdvReac Type Severity Reaction Status Date / Time cyclobenzaprine HCl Allergy Unknown Verified 08/14/20 12:27 [From Flexeril] oxaprozin [From Daypro] Allergy Unknown Verified 08/14/20 12:27 sulfamethoxazole Allergy Unknown Verified 08/14/20 12:27 [From Bactrim] trimethoprim [From Bactrim] Allergy Unknown Verified 08/14/20 12:27 Review of Systems ROS Statement: Those systems with pertinent positive or pertinent negative responses have been documented in the HPI. ROS Other: All systems not noted in ROS Statement are negative. Past Medical History Past Medical History: Asthma, GERD/Reflux, Hypertension, Osteoarthritis (OA), Seizure Disorder Additional Past Medical History / Comment(s): cognitive impairment. grand-mal and petit mal seizure, "last seizure when she broke her foot," last was 10/2019; in cast. Patient has some confusion, friend helping with health hx questions. Patient states she was taken off HTN Rx. History of Any Multi-Drug Resistant Organisms: None Reported Past Surgical History: Orthopedic Surgery Additional Past Surgical History / Comment(s): left ankle surgery 12/2019; Lt KNEE SURG Past Anesthesia/Blood Transfusion Reactions: No Reported Reaction Past Psychological History: Depression, Schizoaffective Disorder Additional Psychological History / Comment(s): cognitive impairment signs her own consents Smoking Status: Current every day smoker Past Alcohol Use History: None Reported Additional Past Alcohol Use History / Comment(s): Smoker since age 13, 1 ppd Past Drug Use History: None Reported - Past Family History Mother Family Medical History: Seizure Disorder Father Family Medical History: Cancer, Diabetes Mellitus Course Vital Signs 08/28/22 04:33 Temperature 98.2 F Pulse Rate 77 Respiratory 16 Rate O2 Sat by Pulse 100 Oximetry Medical Decision Making - Lab Data Result diagrams: 08/28/22 04:47 08/28/22 04:47 Lab Results 08/28/22 08/28/22 Range/Units 04:47 04:47 WBC 7.4 (3.8-10.6) k/uL RBC 3.67 L (3.80-5.40) m/uL Hgb 12.1 (11.4-16.0) gm/dL Hct 35.2 (34.0-46.0) % MCV 96.0 (80.0-100.0) fL MCH 33.1 (25.0-35.0) pg MCHC 34.4 (31.0-37.0) g/dL RDW 11.9 (11.5-15.5) % Plt Count 246 (150-450) k/uL MPV 8.2 Neutrophils % 57 % Lymphocytes % 27 % Monocytes % 5 % Eosinophils % 9 % Basophils % 0 % Neutrophils # 4.2 (1.3-7.7) k/uL Lymphocytes # 2.0 (1.0-4.8) k/uL Monocytes # 0.4 (0-1.0) k/uL Eosinophils # 0.6 (0-0.7) k/uL Basophils # 0.0 (0-0.2) k/uL Sodium 131 L (137-145) mmol/L Potassium 3.8 (3.5-5.1) mmol/L Chloride 98 (98-107) mmol/L Carbon Dioxide 21 L (22-30) mmol/L Anion Gap 12 mmol/L BUN 11 (7-17) mg/dL Creatinine 0.84 (0.52-1.04) mg/dL Est GFR (CKD-EPI)AfAm 90 (>60 ml/min/1.73 sqM) Est GFR (CKD-EPI)NonAf 78 (>60 ml/min/1.73 sqM) Glucose 103 H (74-99) mg/dL Calcium 8.8 (8.4-10.2) mg/dL Total Bilirubin 0.4 (0.2-1.3) mg/dL AST 17 (14-36) U/L ALT 11 (4-34) U/L Alkaline Phosphatase 129 H (38-126) U/L Total Protein 6.4 (6.3-8.2) g/dL Albumin 4.3 (3.5-5.0) g/dL Disposition Clinical Impression: Fall Disposition: HOME SELF-CARE Condition: Good Instructions (If sedation given, give patient instructions): Fall Prevention for Older Adults (ED) Is patient prescribed a controlled substance at d/c from ED?: No Referrals: Constantino Denny Jr, [Primary Care Provider] - 1-2 days Time of Disposition: 05:49
[2022-08-28 04:40] VITALS: PULSE 77; RESP 16; TEMP 98.2
[2022-08-28 04:55] LABS: Basophils % (A) 0 %; Eosinophils # (A) 0.6 k/uL (0-0.7); Eosinophils % (A) 9 %; HCT 35.2 % (34.0-46.0); HGB 12.1 gm/dL (11.4-16.0); Lymphocytes % (A) 27 %; MCH 33.1 pg (25.0-35.0); MCHC 34.4 g/dL (31.0-37.0); Mean Platelet Volume 8.2; Monocytes # (A) 0.4 k/uL (0-1.0); Monocytes % (A) 5 %; Neutrophils # (A) 4.2 k/uL (1.3-7.7); Neutrophils % (A) 57 %; Platelet Count 246 k/uL (150-450); RBC 3.67 m/uL (3.80-5.40); RDW 11.9 % (11.5-15.5); WBC 7.4 k/uL (3.8-10.6)
[2022-08-28 05:02] LABS: Albumin 4.3 g/dL (3.5-5.0); Calcium 8.8 mg/dL (8.4-10.2); Potassium 3.8 mmol/L (3.5-5.1); Total Bilirubin 0.4 mg/dL (0.2-1.3); Total Protein 6.4 g/dL (6.3-8.2)
--- NOTE | 2022-08-28 05:36 | CT ---
EXAMINATION TYPE: CT brain cspine wo con DATE OF EXAM: 08/28/2022 COMPARISON: 12/26/2014 HISTORY: Fall CT DLP: 1379 mGycm Automated exposure control for dose reduction was used. Ventricles have normal size. There is no mass effect or midline shift. No sign of intracranial hemorr rickey. Calvarium is intact. There is some hyperostosis of the skull. Cervical vertebra show normal alignment. There is large anterior hypertrophic bridging osteophyte for mation in the mid and lower cervical spine. Facet joints are intact. There is hypertrophic mild facet arthropathy. There is normal aeration of the mastoid sinuses. IMPRESSION: Negative CT scan of the brain. Extensive hypertrophic osteophyte formation in the cervical spine. No fracture seen. No change compared to old exam
--- NOTE | 2022-08-28 05:39 | XR ---
EXAMINATION TYPE: XR chest 1V portable DATE OF EXAM: 08/28/2022 COMPARISON: 01/17/2019 HISTORY: Fall. Pain TECHNIQUE: Single view FINDINGS: There is mild linear density right upper lobe. Heart size is normal. No pleural effusion. T here are no hilar masses. There are chest leads. IMPRESSION: Linear density right upper lobe consistent with scarring that is not adversely changed co mpared to old exam. No acute lung disease. No heart failure.
--- NOTE | 2022-08-28 05:41 | XR ---
EXAMINATION TYPE: XR pelvis AP view DATE OF EXAM: 08/28/2022 COMPARISON: NONE HISTORY: Fall. Pain TECHNIQUE: Single view FINDINGS: Pelvic ring is intact. The proximal femurs and hip joints are intact. Sacroiliac joints are intact. No fracture. IMPRESSION: No acute abnormality of the pelvis.
== END 2022-08-28 06:24 | disposition home or self-care (01) ==
LOC: EC 04:23
DX: R56.9 Unspecified convulsions (principal); J45.909 Unspecified asthma, uncomplicated; I10 Essential (primary) hypertension; K21.9 Gastro-esophageal reflux disease without esophagitis; Z88.2 Allergy status to sulfonamides; F17.200 Nicotine dependence, unspecified, uncomplicated; Z88.8 Allergy status to other drugs, medicaments and biological substances; Z88.6 Allergy status to analgesic agent; Z79.51 Long term (current) use of inhaled steroids
CPT/HCPCS: 36415; 70450; 71045; 72125; 72170; 80053; 85025; 93005; 99284; 99285

== ENCOUNTER 2022-09-07 12:57 | Emergency (ER) | payer MEDICARE, OTHER ==
[2022-09-07 13:59] VITALS: BP 158/69; PULSE 74; RESP 18; TEMP 97.5
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
[2022-09-07 15:11] LABS: Cocaine Screen,Urine Not Detected (NotDetected); Phencyclidine Screen,Urine Not Detected (NotDetected); Urn Cannabinoid Scrn Detected (NotDetected)
[2022-09-07 15:12] LABS: Amphetamine Screen,Urine Not Detected (NotDetected); Barbiturate Screen,Urine Not Detected (NotDetected); Benzodiazepines Screen,Urine Detected (NotDetected); Methadone Screen, Urine Not Detected (NotDetected); Opiate Screen,Urine Not Detected (NotDetected); Oxycodone Screen, Urine Not Detected (NotDetected); Tricyclic Antidepressant,Urine Not Detected (NotDetected)
== END 2022-09-07 15:35 | disposition home or self-care (01) ==
LOC: EC 12:57
DX: T76.21XA Adult sexual abuse, suspected, initial encounter (principal); J45.909 Unspecified asthma, uncomplicated; K21.9 Gastro-esophageal reflux disease without esophagitis; I10 Essential (primary) hypertension; M19.90 Unspecified osteoarthritis, unspecified site; Z79.82 Long term (current) use of aspirin; Z88.2 Allergy status to sulfonamides; Z88.6 Allergy status to analgesic agent; Z79.890 Hormone replacement therapy; Z79.83 Long term (current) use of bisphosphonates
CPT/HCPCS: 80306; 99284

== ENCOUNTER 2022-11-25 09:15 | Inpatient (IN) | payer MEDICARE, OTHER ==
[2022-11-25] MEDS ORDERED: SODIUM CHLORIDE 0.9% 1,000 ML IV STA (09:23)
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
[2022-11-25 09:39] LABS: Basophils % (A) 0 %; Eosinophils # (A) 0.2 k/uL (0-0.7); Eosinophils % (A) 2 %; HCT 37.4 % (34.0-46.0); Lymphocytes # (A) 0.8 k/uL (1.0-4.8); Lymphocytes % (A) 7 %; MCH 33.5 pg (25.0-35.0); MCHC 34.7 g/dL (31.0-37.0); MCV 96.5 fL (80.0-100.0); Mean Platelet Volume 8.5; Monocytes # (A) 0.7 k/uL (0-1.0); Monocytes % (A) 7 %; Neutrophils # (A) 9.3 k/uL (1.3-7.7); Neutrophils % (A) 83 %; Platelet Count 192 k/uL (150-450); RBC 3.87 m/uL (3.80-5.40); WBC 11.1 k/uL (3.8-10.6)
[2022-11-25 09:50] LABS: Partial Thromboplastin Time 25.8 sec (22.0-30.0); Prothrombin Time 10.5 sec (9.0-12.0)
--- NOTE | 2022-11-25 09:54 | CT ---
EXAMINATION TYPE: CT brain wo con for TPA DATE OF EXAM: 11/25/2022 HISTORY: Acute onset neuro deficit CT DLP: 2166 mGycm. Automated Exposure Control for Dose Reduction was Utilized. TECHNIQUE: CT scan of the head is performed without contrast. COMPARISON: Prior CT brain August 28, 2022 FINDINGS: There is no acute intracranial hemorrhage or midline shift identified. There is mild diff use ventricular and sulcal prominence consistent with diffuse age-related cerebral atrophy. Swanson-whit e matter differentiation fairly well maintained. Small right supraorbital acute scalp hematoma extend s towards the right zygoma. The calvarium is intact. Globes are intact bilaterally. Patchy opacificat ion mucosal thickening involving ethmoid sinuses bilaterally. Mild mucosal thickening in the bilatera l sphenoid sinuses with some dependent fluid on the left. [id number] mucosal thickening in bila teral maxillary sinuses. IMPRESSION: No acute intracranial hemorrhage or midline shift. There is mild diffuse age-related ce rebral atrophy redemonstrated. There is small right supraorbital acute scalp hematoma extending late rally and inferiorly. There is new acute on chronic paranasal sinus disease.
[2022-11-25 09:56] LABS: ALT 17 U/L (4-34); AST 30 U/L (14-36); African American GFR (CKD) >90 (>60 ml/min/1.73 sqM); Albumin 4.5 g/dL (3.5-5.0); Alkaline Phosphatase 133 U/L (38-126); Anion Gap 9 mmol/L; Blood Urea Nitrogen 14 mg/dL (7-17); Calcium 8.5 mg/dL (8.4-10.2); Carbon Dioxide 26 mmol/L (22-30); Chloride 96 mmol/L (98-107); Glucose 111 mg/dL (74-99); Non-African American GFR(CKD) >90 (>60 ml/min/1.73 sqM); Potassium 3.6 mmol/L (3.5-5.1); Sodium 131 mmol/L (137-145); Total Bilirubin 0.7 mg/dL (0.2-1.3); Total Protein 6.8 g/dL (6.3-8.2)
--- NOTE | 2022-11-25 10:29 | CT ---
EXAMINATION TYPE: CT angio head neck CT DLP: 478.3 mGycm, Automated exposure control for dose reduction was used. DATE OF EXAM: 11/25/2022 10:11 AM COMPARISON: CT brain same day. CLINICAL INDICATION:Female, 57 years old with history of Neuro deficit, acute, stroke suspected, Neur o deficits, code stroke TECHNIQUE: Axially acquired helical CT angiogram of the head and neck was obtained with contrast. Axi al images are supplemented with 3D reconstructions which [facility] NASCET criteria used. Contrast used:65 mL of Isovue 370 with IV Contrast, Oral contrast used: None. FINDINGS: CTA HEAD: No evidence of acute intracranial hemorrhage, mass effect, or midline shift. The ventricles, sulci, a nd cisterns are unremarkable. The visualized portions of the internal carotid arteries, middle cerebral arteries, anterior cerebral arteries, and posterior cerebral arteries are patent. origin of the right posterior cerebral a rtery. Hypoplastic left posterior communicating artery. The basilar and vertebral arteries are patent. CTA NECK: Right Carotid System: The common carotid artery and external carotid artery are patent. The carotid bifurcation demonstrate s no evidence of hemodynamically significant stenosis. The remaining portions of the internal carotid artery demonstrate normal size without significant narrowing. There is a medialized course to the in ternal carotid artery which is posterior to the pharynx. Left Carotid System: The common carotid artery and external carotid artery are patent. The carotid bifurcation demonstrate s no evidence of hemodynamically significant stenosis. The remaining portions of the internal carotid artery demonstrate normal size without significant narrowing. There is a medialized course to the in ternal carotid artery which is posterior to the pharynx. Vertebral arteries are patent without evidence hemodynamically significant stenosis. There is a two-vessel aortic arch. The origins of the great vessels are patent. No evidence of hemody namically significant stenosis. Paranasal sinus mucosal thickening scattered throughout the visualized sinuses. Right periorbital soft tissue edema/contusion. IMPRESSION: 1. No evidence of dissection of the cervical internal carotid arteries or vertebral arteries or any e vidence of significant stenosis at the carotid bifurcations. 2. No evidence of intracranial high-grade stenosis or intracranial aneurysm. 3. Right periorbital contusion/hematoma.
--- NOTE | 2022-11-25 10:36 | XR ---
EXAMINATION TYPE: XR foot complete RT DATE OF EXAM: 11/25/2022 CLINICAL HISTORY: Injury with pain TECHNIQUE: Frontal, lateral, and oblique images of the right foot are obtained. COMPARISON: None FINDINGS: Osseous structures are demineralized just noted to lower radiographic sensitivity. Acute m inimally displaced oblique intra-articular fractures through the medial base of the second and third proximal phalanx are seen. Flexion in the toes makes evaluation at this level suboptimal. Old healed fracture deformity of the fifth proximal phalanx noted. There is large inferior calcaneal spur. There is small to moderate spurring at the posterior superior calcaneus at distal Achilles tendon insertio n. Overlying soft tissue is unremarkable. IMPRESSION: As above. (Initial encounter closed type posttraumatic fracture)
--- NOTE | 2022-11-25 10:37 | XR ---
EXAMINATION TYPE: XR chest 2V DATE OF EXAM: 11/25/2022 COMPARISON: 08/28/2022 TECHNIQUE: PA and lateral views submitted. HISTORY: Acute mental status FINDINGS: Consolidation in the right upper lobe. Heart size normal. Elevated right hemidiaphragm. Hypertrophic degenerative changes spine. No overt failure. No pleural effusion or pneumothorax. IMPRESSION: 1. Right upper lobe subsegmental consolidation could be on the basis scarring or atelectasis.
[2022-11-25 11:25] LABS: Appearance,Urine Clear (Clear); Bilirubin,Urine Negative (Negative); Blood,Urine Negative (Negative); Color,Urine Yellow; Glucose,Urine (UA) Negative (Negative); Ketones,Urine Negative (Negative); Leukocyte Esterase,Urine Negative (Negative); Nitrite,Urine Negative (Negative); PH, Urine 6.5 (5.0-8.0); Protein,Urine Trace (Negative); Urobilinogen,Urine <2.0 mg/dL (<2.0)
[2022-11-25] MEDS ORDERED: NALOXONE 0.4 MG/ML 1 ML VIAL IV PRN (12:20)
[2022-11-25] MEDS ORDERED: DIVALPROEX ER 250 MG TAB.ER.24H PO STA (12:27)
[2022-11-25] MEDS: SODIUM CHLORIDE 0.9% 1,000 ML IV SCH (12:55)
[2022-11-25 13:03] LABS: Amphetamine Screen,Urine Not Detected (NotDetected); Barbiturate Screen,Urine Not Detected (NotDetected); Benzodiazepines Screen,Urine Not Detected (NotDetected); Cocaine Screen,Urine Not Detected (NotDetected); Methadone Screen, Urine Not Detected (NotDetected); Opiate Screen,Urine Not Detected (NotDetected); Oxycodone Screen, Urine Not Detected (NotDetected); Phencyclidine Screen,Urine Not Detected (NotDetected); Tricyclic Antidepressant,Urine Not Detected (NotDetected); Urn Cannabinoid Scrn Detected (NotDetected)
--- NOTE | 2022-11-25 13:03 | P.CNNES ---
History of Present Illness Consult date: 11/25/22 Requesting physician: Errol Mistry Reason for Consult: seizure History of Present Illness: This is a 57-year-old woman with history of seizure, cognitive impairment who presented to the emergency department because of seizures. Some the history is obtained from ED physician. It seems the patient has been having seizures over the past or 48 to 72 hours that was witnessed according to the ED team. She presented non-responsive initially then later started waking up and responding to questions. According to the patient she has ran out of Depakote and gabapentin last 3-4 days. She stated that her neurologist did not refill her seizure medication. She does not recall what transpired at home. But she stated that that she hit her head on the table and stated that she lost urinary incontinence. It seems she had multiple falls and trauma around the right eye. She stated that the her friend lives with her ([place]). She follows up with Dr. Munoz for her neurological management. Patient notified me that she is on Depakote, Tegretol but could not tell me the doses. She stated she is also on gabapentin but not sure. She is getting them for neuropathy. Patient is on Tegretol. Patient denies off alcohol use or any illicit drug use. She stated that she smokes half a pack a day. In the medical record it seems that the patient is on Depakote 750 mg extended release daily, Tegretol 500 mg extended release one tablet twice a day. She is also on Zoloft, trazodone, BuSpar for her psychiatric issues. Her last seizure according to the patient was in September around and also she has ran out of medication at that time as well. She could not tell about her prior seizure medications she tried. Some of the workup while in ED: Initial temperature is 97.7, heart rate of 82, respiratory of 18, blood pressure of 143/75 and pulse ox of 98% room air Initial white blood cells 11.1 thousand minimally neutrophilic. Sodium is 131, glucose 111, calcium is 8.5, AST and ALT is within normal limits. ED team activated a stroke code because of suspected stroke because of neuro deficits. CT of the head is reported as no acute intracranial hemorrhage or midline shift. There is midline diffuse age-related cerebral atrophy we demonstrate. There is small whites pro orbital acute scalp hematoma extending laterally inferior. There is a new acute on chronic paranasal sinus disease. I personally reviewed the CT and I agree with the report CT angiography of the head and neck was reported as no evidence of dissection of the cervical internal carotid arteries or vertebral arteries or any evidence of significant stenosis at the carotid bifurcation. No evidence of intracranial high-grade stenosis or intracranial aneurysm. Right periorbital contusion/hematoma. No IV TPA since unknown last normal and risk outweighed the benefit. Also per ED is seems more like seizure. Review of Systems Review of system: The 12 point system was reviewed and apparent positive and negative per HPI. Past Medical History Past Medical History: Asthma, GERD/Reflux, Hypertension, Osteoarthritis (OA), Seizure Disorder Additional Past Medical History / Comment(s): cognitive impairment. grand-mal and petit mal seizure, "last seizure when she broke her foot," last was 10/2019; in [place]. Patient has some confusion, friend helping with health hx questions. Patient states she was taken off HTN Rx. History of Any Multi-Drug Resistant Organisms: None Reported Past Surgical History: Orthopedic Surgery Additional Past Surgical History / Comment(s): left ankle surgery 12/2019; Lt KNEE SURG Past Anesthesia/Blood Transfusion Reactions: No Reported Reaction Past Psychological History: Depression, Schizoaffective Disorder Smoking Status: Current every day smoker Past Alcohol Use History: Rare Past Drug Use History: Marijuana - Past Family History Mother Family Medical History: Seizure Disorder Father Family Medical History: Cancer, Diabetes Mellitus Medications and Allergies Home Medications Medication Instructions Recorded Confirmed Type rOPINIRole HCL [Requip] 1 mg PO DAILY 01/17/19 11/25/22 History Albuterol Inhaler [Ventolin Hfa 2 puff INHALATION RT-Q6H PRN 11/18/19 11/25/22 History Inhaler] Loperamide HCl [Imodium A-D] 2 mg PO QID PRN 11/18/19 11/25/22 History Meclizine [Antivert] 12.5 mg PO BID PRN 11/18/19 11/25/22 History Sertraline [Zoloft] 100 mg PO DAILY 11/18/19 11/25/22 History carBAMazepine [TEGretol XR] 100 mg PO BID 12/27/19 11/25/22 History risperiDONE [RisperDAL] 3 mg PO BID 12/27/19 11/25/22 History Acetaminophen Tab [Tylenol Tab] 500 mg PO Q6H PRN 11/25/22 11/25/22 History Ascorbic Acid/Elderberry Fruit 1 tab PO DAILY 11/25/22 11/25/22 History [Elderberry-Vit C 50-100 mg Chw] Cyanocobalamin (Vitamin B-12) 5,000 mcg PO DAILY 11/25/22 11/25/22 History [Vitamin B-12] Divalproex ER [Depakote ER] 250 mg PO DAILY 11/25/22 11/25/22 History Divalproex Sodium [Divalproex 500 mg PO DAILY 11/25/22 11/25/22 History Sodium ER] Ergocalciferol [Vitamin D2 (1250 1,250 mcg PO Q7D 11/25/22 11/25/22 History Mcg = 56502 Iu)] Loratadine [Claritin] 10 mg PO DAILY 11/25/22 11/25/22 History Nicotine Polacrilex [Nicotine 2 mg BC DIRECTED 11/25/22 11/25/22 History Lozenge] busPIRone HCL [Buspar] 7.5 mg PO BID 11/25/22 11/25/22 History carBAMazepine [carBAMazepine ER] 400 mg PO BID 11/25/22 11/25/22 History diphenhydrAMINE [Benadryl] 25 mg PO QID PRN 11/25/22 11/25/22 History traZODone HCL 150 mg PO HS 11/25/22 11/25/22 History Allergies Allergy/AdvReac Type Severity Reaction Status Date / Time cyclobenzaprine HCl Allergy Unknown Verified 08/14/20 12:27 [From Flexeril] oxaprozin [From Daypro] Allergy Unknown Verified 08/14/20 12:27 sulfamethoxazole Allergy Unknown Verified 08/14/20 12:27 [From Bactrim] trimethoprim [From Bactrim] Allergy Unknown Verified 08/14/20 12:27 Physical Examination - Vital Signs Vital Signs: Vital Signs Temp Pulse Resp BP Pulse Ox 11/25/22 10:05 80 18 148/80 96 11/25/22 09:16 97.7 F 82 18 143/75 98 Intake and Output 11/24/22 11/25/22 11/25/22 22:59 06:59 14:59 Other: Weight 79.9 kg GENERAL: The patient is lying in bed and is not in acute distress. CHEST: The heart rate is regular rate rhythm. No murmurs to auscultation. LUNG: Clear to auscultation bilaterally no wheezing noted throughout. Not labored breathing. ABDOMEN/GI: Bowel sounds present in all 4 quadrants. No tenderness to palpation throughout. NEUROLOGICAL: Higher mental function: The patient is mildly to moderately drowsy but is awakeable to voice. Is oriented to self. She stated the year is 2024. Could not tell me place or month. She correctly named pen and watch. She is following simple commands. No aphasia or neglect. . Cranial nerves: Has hematoma over the right periorbital/eye lid region. The pupils are round, equal and reactive to light. Visual michel had hard time performing since had upward gaze preference. Has upward gaze prefrence but is able to look somewhat to right but there is restriction looking to far right bilaterally. Also has restriction looking to left and downward. Extraocular movement is intact no nystagmus is noted. Facial sensation is normal to touch throughout. The facial strength is normal throughout. Tongue is midline and moved [id number] without any difficulty. Has no teeth. No dysarthria is noted. Shoulder shrug is normal bilaterally. Motor: The strength is left distal lower extremity is weak but has old scar from surgery and stated old. Otherwise 5 over 5 throughout. Normal tone and bulk. Cerebellum: Normal finger to nose bilaterally. Sensation: Sensation is normal to touch throughout. Reflexes (right/left): 1+ throughout. Plantars are upgoing bilaterally. Results - Laboratory Findings CBC and BMP: 11/25/22 09:30 11/25/22 09:30 Abnormal Lab Findings: Abnormal Labs 11/25/22 11/25/22 11/25/22 09:30 09:30 11:12 WBC 11.1 H Neutrophils # 9.3 H Lymphocytes # 0.8 L Sodium 131 L Chloride 96 L Glucose 111 H Alkaline Phosphatase 133 H Ur Specific [place] 1.050 H Urine Protein Trace H Assessment and Plan Assessment: This is a 57-year-old woman who seems that she's been having seizure for the last 48 hours to 72 hours and stated that she ran out of medication (Depakote and Gabapentin) Breakthrough seizure due to medication noncompliance (Ran out of medications: Depakote. Also Gabapentin is used for neuropathy but has antiepileptic effect) Extra ocular movement restriction (restriction looking to the left, downward and far right bilaterally: Unknown exact cause. Rule out post-ictal vs other inctranial process such as mass vs stroke Right periorbital hematoma due to her falls History of epilepsy Cognitive impairment Hypertension Left ankle surgery Schizoaffective Depression Tobacco use Plan: I ordered MRI the brain with and without to rule out any stroke or any intracranial mass as a result of her extraocular movement restriction. Patient does have a stroke we'll get the rest of the stroke workup. Ordered the EEG I will start her back on her home medication of Depakote extended release 750 mg daily, Tegretol 500 mg 1 tablet twice a day. Patient on home medication of Buspar which lowers threshold for seizure and I recommend avoiding that medication. She is on multiple psychiatric medication. Depakote is used for seizures as well as psych/mood. Placed on Ativan 1 mg when necessary every 4 hours for seizure I ordered Depakote level, Tegretol level, lactic acid and prolactin I am not sure what dose of Gabapentin she is on but stated is on it and has ran out for past 3 days. Every 4 hours neuro checks Placed on seizure precautions seizure pads PT and OT are consulted She was counseled on tobacco cessation We'll defer the rest of the medical management the primary team Patient was counseled on avoiding missing her medication and the making sure before running out of medication to contact her neurologist as soon as possible for refills. She needs to follow-up with her neurologist (Dr. Mendes) within 1-2 weeks as an outpatient. The plan was discussed with the ED physician Date of consultation Time with Patient: Greater than 30
[2022-11-25] MEDS ORDERED: LORazepam 2 MG/ML INJ IV PRN (13:04)
[2022-11-25 13:18] LABS: Carbamazepine (Tegretol) 18.9 ug/mL
[2022-11-25] MEDS: carBAMazepine 400 MG TAB.ER.12H PO SCH ×2 (13:38→20:15)
[2022-11-25] MEDS: carBAMazepine 100 MG TAB.ER.12H PO SCH ×2 (13:39→20:15)
--- NOTE | 2022-11-25 19:21 | EEG ---
ELECTROENCEPHALOGRAM REPORT CLINICAL HISTORY: This is a 57-year-old woman with history of seizure, who presented because of multiple seizure activity at home. The video EEG is obtained to evaluate for seizure epileptiform activity. RELEVANT MEDICATIONS: 1. Depakote. 2. Tegretol. EEG TYPE: This routine 21-channel EEG is performed with video using the 10/20 electrode placement system. DESCRIPTION: Wakefulness is only obtained. During awake state, the background consists of low-to- moderate voltage of 4.5 to 5.5 hertz theta activity that is nonrhythmic. There was no physiological sleep architecture seen. There is no focal slowing. Interictal and ictal is none. ACTIVATION PROCEDURE: Photic stimulation and hyperventilation are not performed. CLINICAL INTERPRETATION: This is an abnormal routine EEG. The background slowing is suggestive of moderate encephalopathy. Otherwise, there is no focal slowing, epileptiform discharges, or seizure on the EEG. Clinical correlation is recommended. RUPAL / SEEMA: [id number] /
[2022-11-26] MEDS: carBAMazepine 400 MG TAB.ER.12H PO SCH (00:05)
[2022-11-26] MEDS: carBAMazepine 100 MG TAB.ER.12H PO SCH (00:05)
[2022-11-26] MEDS ORDERED: LORazepam 2 MG/ML INJ IV PRN (09:15)
[2022-11-26] MEDS: DIVALPROEX ER 250 MG TAB.ER.24H PO SCH (10:16)
[2022-11-26] MEDS: SODIUM CHLORIDE 0.9% 1,000 ML IV SCH (11:44)
--- NOTE | 2022-11-26 13:35 | P.PN ---
Subjective Progress Note Date: 11/26/22 The patient is seen at bedside and feeling doing well. Denies any focal weakness, numbness. No further seizures per nurse. Objective - Vital Signs Vital signs: Vital Signs Temp 98 F 11/26/22 06:47 Pulse 87 11/26/22 09:19 Resp 18 11/26/22 09:19 BP 147/80 11/26/22 09:19 Pulse Ox 96 11/26/22 09:19 FiO2 Intake & Output 11/25/22 11/26/22 11/26/22 18:59 06:59 18:59 Weight 79.9 kg 79.9 kg - Exam GENERAL: The patient is lying in bed and is not in acute distress. NEUROLOGICAL: Higher mental function: The patient is mildly drowsy but is awakeable to voice. Is oriented to self. Could not tell me place or month. She correctly named pen and watch. She is following simple commands. No aphasia or neglect. . Cranial nerves: Has hematoma over the right periorbital/eye lid region. The pupils are round, equal and reactive to light. Patient is looking in all directions today compared to yesterday. Facial sensation is normal to touch throughout. The facial strength is normal throughout. Tongue is midline and moved [id number] without any difficulty. Has no teeth. No dysarthria is noted. Shoulder shrug is normal bilaterally. Motor: The strength is left distal lower extremity is weak but has old scar from surgery and stated old. Otherwise 5 over 5 throughout. Normal tone and bulk. Cerebellum: Normal finger to nose bilaterally. Sensation: Sensation is normal to touch throughout. Reflexes (right/left): 1+ throughout. Plantars are upgoing bilaterally. Some of the workup while in ED: Sodium is 131, glucose 111, calcium is 8.5, AST and ALT is within normal limits. Lactic acid vein is 0.9 Prolactin is 7.0 Urine drug screen is a marijuana was detected. Otherwise rest is not detected Valproic acid is 17.0 which is subtherapeutic the normal supposed to be between 50-120 Carbamazepine at the level is 18.9 which is a toxic level in the therapeutic level is between 4-12 CT of the head is reported as no acute intracranial hemorrhage or midline shift. There is midline diffuse age-related cerebral atrophy we demonstrate. There is small whites pro orbital acute scalp hematoma extending laterally inferior. There is a new acute on chronic paranasal sinus disease. I personally reviewed the CT and I agree with the report CT angiography of the head and neck was reported as no evidence of dissection of the cervical internal carotid arteries or vertebral arteries or any evidence of significant stenosis at the carotid bifurcation. No evidence of intracranial high-grade stenosis or intracranial aneurysm. Right periorbital contusion/hematoma. EEG is abnormal. The back of slowing suggestive of moderate encephalopathy. Otherwise there is no focal slowing, epileptiform discharges or seizure on the EEG. Clinical correlation is recommended - Labs CBC & Chem 7: 11/25/22 09:30 11/25/22 09:30 Assessment and Plan Assessment: This is a 57-year-old woman who seems that she's been having seizure for the last 48 hours to 72 hours and stated that she ran out of medication (Depakote and Gabapentin) Breakthrough seizure due to medication noncompliance (Ran out of medications: Depakote. Also Gabapentin is used for neuropathy but has antiepileptic effect)---currently stable. Extra ocular movement restriction (restriction looking to the left, downward and far right bilaterally: Seems post-ictal since today is able to look in all direction. Right periorbital hematoma due to her falls History of epilepsy Supratherapeutic Tegretol and is on a large dose Cognitive impairment Hypertension Left ankle surgery Schizoaffective Depression Tobacco use Plan: MRI Brain w/ and w/o: It is reported as no acute intracranial process. Periventricular white matter hyperintensity on inversion recovery weighted sequence likely on the basis of chronic white matter ischemic change. Local correlation recommended 4. Sinusitis. There is limitation due to motion artifact during this exam. I preservative reviewed the MRI and there is no acute or subacute ischemia or any appreciable mass. I do agree there is limitation in in the exam because of motion artifact. Continue home Depakote extended release 750 mg daily but decreased Tegretol from 500 mg to 400 1 tablet twice a day since toxic level and I feel dose is large. Patient on home medication of Buspar which lowers threshold for seizure and I recommend avoiding that medication. She is on multiple psychiatric medication. Depakote is used for seizures as well as psych/mood. Placed on Ativan 1 mg when necessary every 4 hours for seizure I am not sure what dose of Gabapentin she is on but stated is on it and has ran out for past 3 days. Every 4 hours neuro checks On seizure precautions seizure pads PT and OT are consulted She was counseled on tobacco cessation We'll defer the rest of the medical management the primary team Patient was counseled on avoiding missing her medication and the making sure before running out of medication to contact her neurologist as soon as possible for refills. Per [place] DMV because of the seizure, to avoid driving for 6 month until s eizure-free, avoid heights, avoid the swimming unassisted or using heavy machinery She needs to follow-up with her neurologist (Dr. Mendes) within 1-2 weeks as an outpatient. The plan is discussed with patient and her nurse. If clinically is doing better by tomorrow then the patient is clear from neurological perspective. Time with Patient: Less than 30
--- NOTE | 2022-11-26 15:33 | MR ---
EXAMINATION TYPE: MR brain wo con DATE OF EXAM: 11/26/2022 COMPARISON: CT brain 11/25/2022 HISTORY: Seizure, RT eye/face trauma due to fall CONTRAST: Performed utilizing 8 mL intravenous Gadavist gadolinium contrast. TECHNIQUE: Multiplanar, multiecho imaging on a 3.0 Rosa magnet is performed through the brain. Stud y is performed within 24 hours of arrival to the hospital. T2 sequences are limited due to motion art ifact. Seizure was terminated prior to contrast administration due to noncompliance the patient The craniovertebral junction is normal. The pituitary is normal. Diffusion-weighted imaging is performed. No abnormal hyperintensity is present to suggest an acute i ntracranial infarct or acute ischemic change. There are scattered punctate areas of hyperintensity on T2 and Inversion Recovery weighted sequences in periventricular white matter which are non-specific but can be related to microvascular ischemic c hanges. Ventricles and sulci are appropriate for the patient age. Mucosal thickening is noted bilateral maxillary sinuses and anterior to mid ethmoid air cells. IMPRESSIONS: 1. No acute intracranial process. 2. Periventricular white matter hyperintensities on inversion recovery weighted sequences likely the basis of chronic white matter ischemic change. 3. Clinical correlation recommended for pansinusitis. 4. There is limitation due to motion artifact during the exam.
[2022-11-26] MEDS ORDERED: ONDANSETRON 4 MG/2 ML VIAL IVP PRN (16:43)
--- NOTE | 2022-11-26 16:46 | P.HPIM ---
History of Present Illness H&P Date: 11/26/22 Patient was initially admitted under Dr. Platt. It was noted that he had fired the patient from his medical practice. I got a PerfectServe regarding this patient at 12:59 PM regarding transfer of service. Patient is a 57-year-old female with PMH of asthma, GERD, seizure disorder, schizoaffective disorder with cognitive impairment presents to the ED after multiple witnessed prolonged seizure. Patient is quite slow to respond and a lot of information is obtained from documentation. She does report head trauma and trauma to her right eye. Patient reports that she was unable to refill her Depakote and gabapentin over the past 3 days. She is unable to recall the events that happened at home leading up to her seizure. She follows Dr. Pride as her neurologist. Patient currently denies any headache, lower extremity edema, nausea vomiting, fever or chills, chest pain, shortness breath, palpitations, changes in urination or bowel habits. No changes in appetite or weight. She denies any dizziness, numbness/weakness/tingling of the extremities. Her vital signs in the ED was within normal limits. CBC showed a leukocytosis of 11.1 with neutrophilia. INR was 1. CMP showed sodium 131, chloride of 96, glucose 111, alkaline phosphatase of 133. Troponin was less than 0.03. Lactic acid was negative. Urinalysis showed trace protein. UDS was positive for marijuana. Valproic level within normal limits. Carbamazepine level elevated 18.9. CT head showed small right supraorbital acute scalp hematoma. CTA head and neck was negative for high-grade stenosis. Foot x-ray showed old healed fractures. Chest x-ray showed right upper lobe consolidation, scarring versus atelectasis. Patient is admitted for seizure and neurology consultation. Pertinent positives and negatives as discussed in HPI, a complete review of systems was performed and all other systems are negative. General: non toxic, no distress, appears at stated age Derm: warm, dry Head: atraumatic, normocephalic, symmetric Eyes: EOMI, no lid lag, anicteric sclera Mouth: no lip lesion, mucus membranes moist Cardiovascular: S1S2 reg, no murmur, positive posterior tibial pulse bilateral, Lungs: CTA bilateral, no rhonchi, no rales , no accessory muscle use Abdominal: soft, nontender to palpation, no guarding, no appreciable organomegaly Ext: no gross muscle atrophy, no edema, no contractures Neuro: CN II-XI grossly intact, no focal neuro deficits Psych: Alert, oriented, slow to respond #Breakthrough Seizure Neurology has evaluated the patient and started the patient on carbamazepine 400 mg by mouth twice a day along with Depakote 750 mg by mouth daily. Agree with discontinuing BuSpar which lowers the seizure threshold. We will call her pharmacy to obtain her gabapentin dose. Patient will be placed on seizure precautions and advanced neurochecks will be ordered. EKG is reviewed which shows moderate encephalopathy with no epileptiform discharges. MRI brain shows no acute intracranial process, chronic white matter ischemic changes. PT and OT will be consulted to work with this patient. #Leukocytosis This is likely reactive. No signs of active infection. #Hypochloremic hyponatremia Na 131 Cl 96 Encouraged hydration by mouth. Repeat BMP tomorrow morning. #Right periorbital hematoma Warm compresses. #Schizoaffective disorder Restart Risperidal. #Asthma Not in acute exacerbation. #Marijuana abuse #Smoker Patient is offered a nicotine patch. Anticipated discharge to SNF. Case management on board. Past Medical History Past Medical History: Asthma, GERD/Reflux, Hypertension, Osteoarthritis (OA), Seizure Disorder Additional Past Medical History / Comment(s): cognitive impairment. grand-mal and petit mal seizure, "last seizure when she broke her foot," last was 10/2019; in cast. History of Any Multi-Drug Resistant Organisms: None Reported Past Surgical History: Orthopedic Surgery Additional Past Surgical History / Comment(s): left ankle surgery 12/2019; Lt KNE E SURG Past Anesthesia/Blood Transfusion Reactions: No Reported Reaction Past Psychological History: Depression, Schizoaffective Disorder Additional Psychological History / Comment(s): cognitive impairment signs her own consents Smoking Status: Current every day smoker Past Alcohol Use History: Rare Additional Past Alcohol Use History / Comment(s): Smoker since age 13, 1 ppd Past Drug Use History: Marijuana - Past Family History Mother Family Medical History: Seizure Disorder Father Family Medical History: Cancer, Diabetes Mellitus Medications and Allergies Home Medications Medication Instructions Recorded Confirmed Type rOPINIRole HCL [Requip] 1 mg PO DAILY 01/17/19 11/25/22 History Albuterol Inhaler [Ventolin Hfa 2 puff INHALATION RT-Q6H PRN 11/18/19 11/25/22 History Inhaler] Loperamide HCl [Imodium A-D] 2 mg PO QID PRN 11/18/19 11/25/22 History Meclizine [Antivert] 12.5 mg PO BID PRN 11/18/19 11/25/22 History Sertraline [Zoloft] 100 mg PO DAILY 11/18/19 11/25/22 History carBAMazepine [TEGretol XR] 100 mg PO BID 12/27/19 11/25/22 History risperiDONE [RisperDAL] 3 mg PO BID 12/27/19 11/25/22 History Acetaminophen Tab [Tylenol Tab] 500 mg PO Q6H PRN 11/25/22 11/25/22 History Ascorbic Acid/Elderberry Fruit 1 tab PO DAILY 11/25/22 11/25/22 History [Elderberry-Vit C 50-100 mg Chw] Cyanocobalamin (Vitamin B-12) 5,000 mcg PO DAILY 11/25/22 11/25/22 History [Vitamin B-12] Divalproex ER [Depakote ER] 250 mg PO DAILY 11/25/22 11/25/22 History Divalproex Sodium [Divalproex 500 mg PO DAILY 11/25/22 11/25/22 History Sodium ER] Ergocalciferol [Vitamin D2 (1250 1,250 mcg PO Q7D 11/25/22 11/25/22 History Mcg = 86511 Iu)] Loratadine [Claritin] 10 mg PO DAILY 11/25/22 11/25/22 History Nicotine Polacrilex [Nicotine 2 mg BC DIRECTED 11/25/22 11/25/22 History Lozenge] busPIRone HCL [Buspar] 7.5 mg PO BID 11/25/22 11/25/22 History carBAMazepine [carBAMazepine ER] 400 mg PO BID 11/25/22 11/25/22 History diphenhydrAMINE [Benadryl] 25 mg PO QID PRN 11/25/22 11/25/22 History traZODone HCL 150 mg PO HS 11/25/22 11/25/22 History Allergies Allergy/AdvReac Type Severity Reaction Status Date / Time cyclobenzaprine HCl Allergy Unknown Verified 08/14/20 12:27 [From Flexeril] oxaprozin [From Daypro] Allergy Unknown Verified 08/14/20 12:27 sulfamethoxazole Allergy Unknown Verified 08/14/20 12:27 [From Bactrim] trimethoprim [From Bactrim] Allergy Unknown Verified 08/14/20 12:27 Physical Exam Vitals: Vital Signs Temp Pulse Resp BP Pulse Ox 11/26/22 09:19 87 18 147/80 96 11/26/22 06:47 98 F 61 12 148/80 96 11/25/22 20:14 70 16 168/95 98 11/25/22 18:55 97.7 F 70 18 159/78 98 Intake and Output 11/25/22 11/26/22 11/26/22 22:59 06:59 14:59 Other: Weight 79.9 kg Results CBC & Chem 7: 11/25/22 09:30 11/25/22 09:30 Thrombosis Risk Factor Assmnt - Choose All That Apply Each Factor Represents 1 point: Age 41-60 years, Obesity (BMI >25) Thrombosis Risk Factor Assessment Total Risk Factor Score: 2 Thrombosis Risk Factor Assessment Level: Low Risk
[2022-11-26] MEDS: risperiDONE 1 MG TAB PO SCH (20:25)
[2022-11-26] MEDS ORDERED: MECLIZINE 12.5 MG TAB PO PRN (21:23)
[2022-11-27] MEDS: ACETAMINOPHEN TAB 325 MG TAB PO PRN ×2 (05:08→13:51)
[2022-11-27] MEDS: DIVALPROEX ER 250 MG TAB.ER.24H PO SCH (08:47)
[2022-11-27] MEDS: risperiDONE 1 MG TAB PO SCH (08:47)
[2022-11-27] MEDS: carBAMazepine 400 MG TAB.ER.12H PO SCH (08:47)
[2022-11-27] MEDS ORDERED: SERTRALINE 100 MG TAB PO SCH (09:00)
[2022-11-27] MEDS ORDERED: LORATADINE 10 MG TAB PO SCH (09:00)
[2022-11-27 09:35] LABS: Basophils # (A) 0.03 X 10*3/uL (0.00-0.10); Basophils % (A) 0.4 %; Eosinophils # (A) 0.32 X 10*3/uL (0.04-0.35); Eosinophils % (A) 4.6 %; HCT 36.1 % (37.2-46.3); HGB 11.8 g/dL (12.0-15.0); Immature Grans, Automated 0.6 %; Lymphocytes # (A) 2.06 X 10*3/uL (0.90-5.00); Lymphocytes % (A) 29.6 %; MCH 32.2 pg (27.0-32.0); MCHC 32.7 g/dL (32.0-37.0); MCV 98.6 fL (80.0-97.0); Mean Platelet Volume 10.9 fL (9.5-12.2); Monocytes # (A) 0.65 X 10*3/uL (0.20-1.00); Monocytes % (A) 9.3 %; NRBC Per 100 WBC 0 /100 WBCS (0.0-0.0); Neutrophils # (A) 3.87 X 10*3/uL (1.80-7.70); Neutrophils % (A) 55.5 %; Platelet Count 214 X 10*3/uL (140-440); RBC 3.66 X 10*6/uL (4.10-5.20); RDW 12.3 % (11.5-14.5); WBC 6.97 X 10*3/uL (4.50-10.00)
[2022-11-27 10:04] LABS: African American GFR (CKD) 94.9 (60.0-200.0); Anion Gap 12.2 mmol/L (10.00-18.00); BUN/Creat Ratio 13.13 Ratio (12.00-20.00); Blood Urea Nitrogen 10.5 mg/dL (9.0-27.0); Carbon Dioxide 23.8 mmol/L (20.0-27.5); Non-African American GFR(CKD) 81.8 (60.0-200.0); Potassium 3.7 mmol/L (3.5-5.5)
[2022-11-27] MEDS ORDERED: GABAPENTIN 100 MG CAP PO SCH (11:30)
--- NOTE | 2022-11-27 11:39 | P.PN ---
Subjective Progress Note Date: 11/27/22 The patient is seen at bedside and no further seizure according to nurse. According to the patient she is doing better compared to initial presentation. Objective - Vital Signs Vital signs: Vital Signs Temp 98.0 F 11/27/22 07:43 Pulse 61 11/27/22 07:43 Resp 17 11/27/22 07:43 BP 178/86 11/27/22 07:43 Pulse Ox 99 11/27/22 07:43 FiO2 Intake & Output 11/26/22 11/27/22 11/27/22 18:59 06:59 18:59 Intake Total 360 Balance 360 Weight 79.9 kg Intake: Oral 360 Other: # Voids 1 7 - Exam GENERAL: The patient is lying in bed and is not in acute distress. NEUROLOGICAL: Higher mental function: The patient is awake, alert, oriented to self, place and stated year is 2022. She is following simple commands but minimally slow. No aphasia or neglect. . Cranial nerves: Has hematoma over the right periorbital/eye lid region. The pupils are round, equal and reactive to light. Patient is looking in all directions today compared to yesterday. Facial sensation is normal to touch throughout. The facial strength is normal throughout. Tongue is midline and moved [id number] without any difficulty. Has no teeth. No dysarthria is noted. Shoulder shrug is normal bilaterally. Motor: The strength is left distal lower extremity is weak but has old scar from surgery and stated old. Otherwise 5 over 5 throughout. Normal tone and bulk. Cerebellum: Normal finger to nose bilaterally. Sensation: Sensation is normal to touch throughout. Reflexes (right/left): 1+ throughout. Plantars are upgoing bilaterally. Some of the workup while in ED: Sodium is 131, glucose 111, calcium is 8.5, AST and ALT is within normal limits. Lactic acid vein is 0.9 Prolactin is 7.0 Urine drug screen is a marijuana was detected. Otherwise rest is not detected Valproic acid is 17.0 which is subtherapeutic the normal supposed to be between 50-120 Carbamazepine at the level is 18.9 which is a toxic level in the therapeutic level is between 4-12 CT of the head is reported as no acute intracranial hemorrhage or midline shift. There is midline diffuse age-related cerebral atrophy we demonstrate. There is small whites pro orbital acute scalp hematoma extending laterally inferior. There is a new acute on chronic paranasal sinus disease. I personally reviewed the CT and I agree with the report CT angiography of the head and neck was reported as no evidence of dissection of the cervical internal carotid arteries or vertebral arteries or any evidence of significant stenosis at the carotid bifurcation. No evidence of intracranial high-grade stenosis or intracranial aneurysm. Right periorbital contusio n/hematoma. EEG is abnormal. The back of slowing suggestive of moderate encephalopathy. Otherwise there is no focal slowing, epileptiform discharges or seizure on the EEG. Clinical correlation is recommended MRI Brain w/ and w/o: It is reported as no acute intracranial process. Periventricular white matter hyperintensity on inversion recovery weighted sequence likely on the basis of chronic white matter ischemic change. Local correlation recommended 4. Sinusitis. There is limitation due to motion artifact during this exam. I preservative reviewed the MRI and there is no acute or subacute ischemia or any appreciable mass. I do agree there is limitation in in the exam because of motion artifact. - Labs CBC & Chem 7: 11/27/22 05:42 11/27/22 05:42 Labs: Abnormal Lab Results - Last 24 Hours (Table) 11/27/22 Range/Units 05:42 RBC 3.66 L (4.10-5.20) X 10*6/uL Hgb 11.8 L (12.0-15.0) g/dL Hct 36.1 L (37.2-46.3) % MCV 98.6 H (80.0-97.0) fL MCH 32.2 H (27.0-32.0) pg Assessment and Plan Assessment: This is a 57-year-old woman who seems that she's been having seizure for the last 48 hours to 72 hours and stated that she ran out of medication (Depakote and Gabapentin) Breakthrough seizure due to medication noncompliance (Ran out of medications: Depakote. Also Gabapentin is used for neuropathy but has antiepileptic effect)---currently stable. Extra ocular movement restriction (restriction looking to the left, downward and far right bilaterally: Seems post-ictal since today is able to look in all direction. Right periorbital hematoma due to her falls History of epilepsy Supratherapeutic Tegretol and is on a large dose Cognitive impairment Hypertension Left ankle surgery Schizoaffective Depression Tobacco use Polypharamacy Plan: MRI Brain w/ and w/o: It is reported as no acute intracranial process. Periventricular white matter hyperintensity on inversion recovery weighted sequence likely on the basis of chronic white matter ischemic change. Local correlation recommended 4. Sinusitis. There is limitation due to motion artifact during this exam. I preservative reviewed the MRI and there is no acute or subacute ischemia or any appreciable mass. I do agree there is limitation in in the exam because of motion artifact. Continue home Depakote extended release 750 mg daily but decreased Tegretol from 500 mg to 400 1 tablet twice a day since toxic level and I feel dose is large. Patient on home medication of Buspar which lowers threshold for seizure and I recommend avoiding that medication. She is on multiple psychiatric medication. Depakote is used for seizures as well as psych/mood. Placed on Ativan 1 mg when necessary every 4 hours for seizure I was notified she on Gabapentin 100mg 1 tab tid. Every 4 hours neuro checks On seizure precautions seizure pads PT and OT are consulted She was counseled on tobacco cessation We'll defer the rest of the medical management the primary team I feel patient is on polypharmacy and multiple psychiatric medication and sedation which should be modified. Recommend psychiatry team to modify them. Patient was counseled on avoiding missing her medication and the making sure before running out of medication to contact her neurologist as soon as possible for refills. Per [place] DMV because of the seizure, to avoid driving for 6 month until seizure-free, avoid heights, avoid the swimming unassisted or using heavy machinery She needs to follow-up with a neurologist within 1-2 weeks as an outpatient. Stated having difficulty seeing Dr. Munoz and she was notified to attempt seeing a different neurologist. I have updated primary regarding this and they stated they will refer her to Dr. Ayala. The plan is discussed with patient and her nurse. No further neurological work-up. Please notify neurology team if any further concerns. Time with Patient: Less than 30
--- NOTE | 2022-11-27 13:44 | P.DS ---
Providers Date of admission: 11/25/22 12:20 Expected date of discharge: 11/27/22 Attending physician: Kelly Patricia MD Consults: 11/25/22 12:20 Consult Physician Routine Consulting Provider: Noel Harris Consult Reason/Comments: seizure Do you want consulting provider notified?: Yes Primary care physician: [facility] Course: Patient was initially admitted under Dr. Platt. It was noted that he had fired the patient from his medical practice. I got a PerfectServe regarding this patient at 12:59 PM regarding transfer of service. Patient is a 57-year-old female with PMH of asthma, GERD, seizure disorder, schizoaffective disorder with cognitive impairment presents to the ED after multiple witnessed prolonged seizure. Patient is quite slow to respond and a lot of information is obtained from documentation. She does report head trauma and trauma to her right eye. Patient reports that she was unable to refill her Depakote and gabapentin over the past 3 days. She is unable to recall the events that happened at home leading up to her seizure. She follows Dr. Pride as her neurologist. Patient currently denies any headache, lower extremity edema, nausea vomiting, fever or chills, chest pain, shortness breath, palpitations, changes in urination or bowel habits. No changes in appetite or weight. She denies any dizziness, numbness/weakness/tingling of the extremities. Her vital signs in the ED was within normal limits. CBC showed a leukocytosis of 11.1 with neutrophilia. INR was 1. CMP showed sodium 131, chloride of 96, glucose 111, alkaline phosphatase of 133. Troponin was less than 0.03. Lactic acid was negative. Urinalysis showed trace protein. UDS was positive for marijuana. Valproic level within normal limits. Carbamazepine level elevated 18.9. CT head showed small right supraorbital acute scalp hematoma. CTA head and neck was negative for high-grade stenosis. Foot x-ray showed old healed fractures. Chest x-ray showed right upper lobe consolidation, scarring versus atelectasis. Patient is admitted for seizure and neurology consultation. Patient did have any further seizures during hospitalization. Her mentation improved. Neurology recommended continuing Depakote 750 mg PO QD, Carbamazepine 400 mg PO BID and Gabapentin 100 mg PO TID. MRI brain shows no acute intracranial process, chronic white matter ischemic changes. EEG is reviewed which shows moderate encephalopathy with no epileptiform discharges. PT and OT recommended SNF but patient wanted to go home. Patient was seen and examined. She reported feeling at baseline and was requesting discharge home.She denies any complaints. General: non toxic, no distress, appears at stated age Derm: warm, dry Head: atraumatic, normocephalic, symmetric Eyes: EOMI, no lid lag, anicteric sclera Mouth: no lip lesion, mucus membranes moist Cardiovascular: S1S2 reg, no murmur Lungs: CTA bilateral, no rhonchi, no rales , no accessory muscle use Ext: no gross muscle atrophy, no edema, no contractures Neuro: no focal neuro deficits Psych: Alert, oriented, slow to respond Discharge Diagnosis: #Breakthrough Seizure #Leukocytosis #Hypochloremic hyponatremia #Right periorbital hematoma #Schizoaffective disorder #Asthma #Marijuana abuse #Smoker Patient will be discharged with the following instructions: Follow up with your PCP within 1-2 days of discharge. Take all medications as advised. Follow-up with her neurologist (Dr. Munoz) within 1-2 weeks as an outpatient. Per [place] DM because of the seizure, avoid driving for 6 month until seizure-free, avoid heights, avoid the swimming unassisted or using heavy machinery. This complex discharge took 40 minutes to complete. Patient Condition at Discharge: Stable Plan - Discharge Summary Discharge Rx Participant: No New Discharge Prescriptions: New Divalproex ER [Depakote ER] 750 mg PO DAILY #90 tab carBAMazepine [TEGretol XR] 400 mg PO BID #60 tab Gabapentin [Neurontin] 100 mg PO TID #90 cap Continue rOPINIRole HCL [Requip] 1 mg PO DAILY Loperamide HCl [Imodium A-D] 2 mg PO QID PRN PRN Reason: Diarrhea Sertraline [Zoloft] 100 mg PO DAILY Meclizine [Antivert] 12.5 mg PO BID PRN PRN Reason: Vertigo Albuterol Inhaler [Ventolin Hfa Inhaler] 2 puff INHALATION RT-Q6H PRN PRN Reason: Dyspnea risperiDONE [RisperDAL] 3 mg PO BID traZODone HCL 150 mg PO HS Ascorbic Acid/Elderberry Fruit [Elderberry-Vit C 50-100 mg Chw] 1 tab PO DAILY Nicotine Polacrilex [Nicotine Lozenge] 2 mg BC DIRECTED Ergocalciferol [Vitamin D2 (1250 Mcg = 20295 Iu)] 1,250 mcg PO Q7D Loratadine [Claritin] 10 mg PO DAILY Cyanocobalamin (Vitamin B-12) [Vitamin B-12] 5,000 mcg PO DAILY Acetaminophen Tab [Tylenol] 500 mg PO Q6H PRN PRN Reason: Pain Discontinued carBAMazepine [TEGretol XR] 100 mg PO BID carBAMazepine [carBAMazepine ER] 400 mg PO BID Divalproex ER [Depakote ER] 250 mg PO DAILY diphenhydrAMINE [Benadryl] 25 mg PO QID PRN PRN Reason: Allergy Symptoms busPIRone HCL [Buspar] 7.5 mg PO BID Divalproex Sodium [Divalproex Sodium ER] 500 mg PO DAILY Discharge Medication List rOPINIRole HCL [Requip] 1 mg PO DAILY 01/17/19 [History] Albuterol Inhaler [Ventolin Hfa Inhaler] 2 puff INHALATION RT-Q6H PRN 11/18/19 [History] Loperamide HCl [Imodium A-D] 2 mg PO QID PRN 11/18/19 [History] Meclizine [Antivert] 12.5 mg PO BID PRN 11/18/19 [History] Sertraline [Zoloft] 100 mg PO DAILY 11/18/19 [History] risperiDONE [RisperDAL] 3 mg PO BID 12/27/19 [History] Acetaminophen Tab [Tylenol] 500 mg PO Q6H PRN 11/25/22 [History] Ascorbic Acid/Elderberry Fruit [Elderberry-Vit C 50-100 mg Chw] 1 tab PO DAILY 11/25/22 [History] Cyanocobalamin (Vitamin B-12) [Vitamin B-12] 5,000 mcg PO DAILY 11/25/22 [History] Ergocalciferol [Vitamin D2 (1250 Mcg = 24094 Iu)] 1,250 mcg PO Q7D 11/25/22 [History] Loratadine [Claritin] 10 mg PO DAILY 11/25/22 [History] Nicotine Polacrilex [Nicotine Lozenge] 2 mg BC DIRECTED 11/25/22 [History] traZODone HCL 150 mg PO HS 11/25/22 [History] Divalproex ER [Depakote ER] 750 mg PO DAILY #90 tab 11/27/22 [Rx] Gabapentin [Neurontin] 100 mg PO TID #90 cap 11/27/22 [Rx] carBAMazepine [TEGretol XR] 400 mg PO BID #60 tab 11/27/22 [Rx] Follow up Appointment(s)/Referral(s): Zac Munoz MD [REFERRING] - 1 Week (patient wants to make appointment in order to set up transportation ) Constantino Denny Jr, DO [Primary Care Provider] - 1-2 days (patient wants to make appoinment in order to set up transportation) [facility], [NON-STAFF] - 1-2 Days ([facility] will call you to schedule your in home visits. ) Patient Instructions/Handouts: Recurrent Seizures in Adults (DC) Activity/Diet/Wound Care/Special Instructions: Follow up with your PCP within 1-2 days of discharge. Take all medications as advised. Follow-up with her neurologist (Dr. Munoz) within 1-2 weeks as an outpatient. Per [place] DMV because of the seizure, avoid driving for 6 month until seizure-free, avoid heights, avoid the swimming unassisted or using heavy machinery. Discharge Disposition: HOME SELF-CARE
[2022-11-27 15:44] VITALS: BP 138/79; PULSE 88; RESP 19; TEMP 97.5
== END 2022-11-27 14:21 | disposition home or self-care (01) | DRG 101 ==
LOC: EC 09:15 → 4SSUR 12:20
PROVIDERS: ADMIT Family Medicine; ATTEND Family Medicine
DX: G40.802 Other epilepsy, not intractable, without status epilepticus (principal); T74.11XA Adult physical abuse, confirmed, initial encounter; E87.1 Hypo-osmolality and hyponatremia; F32.A Depression, unspecified; G62.9 Polyneuropathy, unspecified; I10 Essential (primary) hypertension; K21.9 Gastro-esophageal reflux disease without esophagitis; D72.829 Elevated white blood cell count, unspecified; J45.909 Unspecified asthma, uncomplicated; J01.90 Acute sinusitis, unspecified; I25.10 Atherosclerotic heart disease of native coronary artery without angina pectoris; S00.03XA Contusion of scalp, initial encounter; E87.8 Other disorders of electrolyte and fluid balance, not elsewhere classified; T42.6X6A Underdosing of other antiepileptic and sedative-hypnotic drugs, initial encounter; F12.10 Cannabis abuse, uncomplicated; S00.11XA Contusion of right eyelid and periocular area, initial encounter; R32 Unspecified urinary incontinence; Z79.899 Other long term (current) drug therapy; Z82.0 Family history of epilepsy and other diseases of the nervous system; Z91.199 Patient's noncompliance with other medical treatment and regimen due to unspecified reason; Z91.128 Patient's intentional underdosing of medication regimen for other reason; Z88.0 Allergy status to penicillin; Z88.2 Allergy status to sulfonamides
CPT/HCPCS: 36415; 70450; 70496; 70498; 70551; 71046; 80048; 80053; 80156; 80164; 80165; 80306; 81003; 83605; 83735; 84146; 84484; 85025; 85610; 85730; 93005; 94760; 95816; 96360; 96361; 99285

== ENCOUNTER 2024-02-19 10:52 | Day surgery (SDC) | payer MEDICARE, OTHER ==
[2024-02-18 11:12] VITALS: BMI 25.0
[2024-02-19] MEDS: LACTATED RINGERS 1,000 ML IV SCH (12:04)
[2024-02-19 12:16] VITALS: TEMP 98.4
[2024-02-19] MEDS ORDERED: PROPOFOL 10 MG/ML 20 ML VIAL IV ONE (13:43)
--- NOTE | 2024-02-19 14:07 | P.PCN ---
Date of Procedure: 02/19/24 Procedure(s) Performed: BRIEF HISTORY: Patient is a 58-year-old pleasant white female scheduled for an elective sigmoidoscopy as a part of follow-up of large rectal polyp that was noted and colonoscopy in June 2023. Biopsies revealed tubular villous adenoma. Patient is scheduled for sigmoidoscopy for polypectomy today. PROCEDURE PERFORMED: Flexible sogmoidoscopy with snare polypectomy and Endo Clip placement PREOPERATIVE DIAGNOSIS: follow-up large rectal polyp noted on a colonoscopy in June 2023. IV sedation per Anesthesia. PROCEDURE: After informed consent was obtained, the patient, was brought into the endoscopy unit. IV sedation was administered by Anesthesia under continuous monitoring. Digital rectal examination was normal. Initially the Olympus CF-160 flexible video colonoscope was then inserted in the rectum, gradually advanced into the sigmoid colon. Careful examination was performed. The sigmoid: Appeared normal. There was some solid stool noted in the sigmoid:. In the mid rectum at 10 cm from the anal vergethere was a 4 cm broad-based polyp identified. The polyp was removed by piecemeal snare polyp rectum and complete polypectomy accomplished. following the polypectomy 3 endo clips were placed to prevent post-polypectomy bleed.. Retroflexion was performed in the rectum and no lesions were seen. The patient tolerated the procedure well. IMPRESSION: 1 cm broad-based mid rectal polyp status post piecemeal snare polypectomy followed by Endo Clip placement and complete polypectomy accomplished RECOMMENDATIONS: Findings of this examination were discussed with the patient as well as a family. She was advised to follow with the biopsy results. Will plan a repeat sigmoidoscopy 6 months to ensure complete polypectomy.
[2024-02-19 14:43] VITALS: BP 128/54; PULSE 63; RESP 16
== END 2024-02-19 14:44 | disposition home or self-care (01) ==
LOC: ORWHC2ENDO 10:52
PROVIDERS: ATTEND Internal Medicine Gastroenterology
DX: D12.8 Benign neoplasm of rectum (principal); I10 Essential (primary) hypertension; J45.909 Unspecified asthma, uncomplicated; G40.909 Epilepsy, unspecified, not intractable, without status epilepticus; M19.90 Unspecified osteoarthritis, unspecified site; F32.A Depression, unspecified; F43.10 Post-traumatic stress disorder, unspecified; F17.200 Nicotine dependence, unspecified, uncomplicated; Z86.010 Personal history of colon polyps; K21.9 Gastro-esophageal reflux disease without esophagitis; Z88.2 Allergy status to sulfonamides; Z88.8 Allergy status to other drugs, medicaments and biological substances; Z79.51 Long term (current) use of inhaled steroids; Z79.899 Other long term (current) drug therapy; Z88.1 Allergy status to other antibiotic agents
CPT/HCPCS: 88305; 45385; J2704